=== PATIENT | female | born 1980 | race Caucasian/White ===

== ENCOUNTER 2016-06-05 16:41 | Outpatient (CLI) | payer MEDICAID | END 2016-06-05 16:42 | disposition home or self-care (01) | DX: M79.671 Pain in right foot (principal) ==

== ENCOUNTER 2016-09-11 09:14 | Emergency (ER) | payer MEDICAID ==
[2016-09-11 09:19] VITALS: BP 127/73
--- NOTE | 2016-09-11 09:40 | ED Physician Documentation ---
PD HPI HEENT - Stated complaint Stated Complaint: THROAT SWOLLEN - Chief complaint Chief Complaint: Heent - History obtained from History obtained from: Patient - History of Present Illness Timing - onset: How many days ago (4) Timing - details: Still present Location: Throat Worsens: Swalllowing Similar symptoms before: No diagnosis - Additional information Additional information: The patient is a 36-year-old female who presents with discomfort on the left side of her throat. Her symptoms started 4 days ago and have persisted. She feels slight swelling, and the discomfort is worse with swallowing. She denies fever, headache, earache, or difficulty breathing. She reports history of similar symptoms occasionally in the past but usually lasting for only a few hours rather than 4 days. Review of Systems Constitutional: denies: Fever Eyes: denies: Decreased vision, Irritation Ears: denies: Ear pain Nose: denies: Congestion Throat: reports: Sore throat (She does not describe it as a sore throat, but more like something is pressing on the left side of her throat.) Cardiac: denies: Chest pain / pressure Respiratory: denies: Dyspnea, Cough GI: denies: Abdominal Pain, Nausea, Vomiting Musculoskeletal: denies: Back pain Neurologic: denies: Focal weakness, Numbness, Difficulty speaking, Headache PD PAST MEDICAL HISTORY - Past Medical History Cardiovascular: Other Respiratory: None Neuro: None Endocrine/Autoimmune: None GI: GERD, 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: Uterine cancer : Kidney stones HEENT: None Psych: Depression, Bipolar disorder, Post traumatic stress disorder, Obsessive compulsive disorder Musculoskeletal: None Derm: Eczema Other Past Medical History: cervical/uterine cancer - Past Surgical History Past Surgical History: Yes General: Cholecystectomy, 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 /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: Hysterectomy, Oophrectomy - Present Medications Home Medications: Ambulatory Orders Medication Instructions Recorded Confirmed QUEtiapine [SEROquel] 300 mg PO QPM 10/01/12 09/11/16 Prazosin [Minipress] 3 mg PO DAILY 09/11/16 09/11/16 - Allergies Allergies/Adverse Reactions: Allergies Allergy/AdvReac Type Severity Reaction Status Date / Time acetaminophen [From Tylenol] Allergy Unknown Verified 08/23/15 10:09 codeine [Codeine] Allergy unknown Verified 08/23/15 10:09 morphine Allergy Unknown Verified 09/11/16 09:19 - Social History Does the pt smoke?: No Smoking Status: Never smoker Does the pt drink ETOH?: Yes Does the pt have substance abuse?: No - Immunizations Immunizations are current?: Yes Immunizations: TDAP >10years/unknown - POLST Patient has POLST: No PD ED PE NORMAL - Vitals Vital signs reviewed: Yes (normal) - General General: Alert and oriented X 3, No acute distress, Well developed/nourished - HEENT HEENT: Atraumatic, PERRL, EOMI, Ears normal, Pharynx benign - Neck Neck: Supple, no meningeal sign, No adenopathy, No JVD, Other (There is no visible swelling on the left side of the neck, but there is very slight tenderness to palpation over the left carotid region.) - Cardiac Cardiac: RRR, No murmur - Respiratory Respiratory: No respiratory distress, Clear bilaterally - Abdomen Abdomen: Soft, Non tender - Back Back: No CVA TTP - Derm Derm: No rash - Extremities Extremities: No edema, No calf tenderness / cord - Neuro Neuro: Alert and oriented X 3, No motor deficit, No sensory deficit, Normal speech Results - Vitals Vitals: Oxygen O2 Source Room air - Rads (name of study) CT neck, soft tisue Radiology: Prelim report reviewed, EMP read contemporaneously, See rad report ( Mild circumferential soft tissue thickening surrounding the distal left CCA and bifurcation. No intimal irregularity, dissection flap, or narrowing is seen. Findings are consistent with acute idiopathic carotidynia. No findings to suggest dissection or vasculitis is appreciated. Otherwise unremarkable CT scan of the neck.) PD MEDICAL DECISION MAKING - ED course Complexity details: reviewed results, re-evaluated patient, considered differential, d/w patient ED course: The patient's presentation is significant for left sided carotidynia, with contrast enhanced CT scan of the neck revealing no evidence of carotid dissection or vasculitis. Review of the medical literature on up-to-date reveals this to be an idiopathic entity with no specific treatment recommendations. I discussed with the patient the results of the CT scan, outpatient follow-up, as well as potentially worrisome signs or symptoms that should prompt reevaluation in the emergency department. Departure - Departure Disposition: 01 Home, Self Care Clinical Impression: Carotidynia Condition: Stable Instructions: ED Cervical Adenitis No Abx Tx Follow-Up: Emigdio Aguirre PA-C [Primary Care Provider] - Comments: Drink plenty of fluids. Use Tylenol or ibuprofen if needed for discomfort. Follow up with your primary physician within one to 2 weeks. Call to schedule an appointment. Return to the emergency department if you develop increasing pain, increasing swelling of your neck, headache, visual disturbance, or otherwise worsening symptoms. Discharge Date/Time: 09/11/16 12:18
[2016-09-11] MEDS ORDERED: IOPAMIDOL-300 100 ML VIAL IVP ONE (11:00)
--- NOTE | 2016-09-11 11:45 | CT Preliminary Report ---
Exam: CT Neck Soft Tissue W/ IMPRESSION: 1. Mild circumferential soft tissue thickening surrounding the distal left CCA and bifurcation. No in timal irregularity, dissection flap, or narrowing is seen. Findings are consistent with acute idiopat hic carotidynia (idiopathic carotiditis). No findings to suggest dissection or vasculitis is apprecia colby. 2. Otherwise unremarkable CT scan of the neck. [facility] SITE ID: [id number]
--- NOTE | 2016-09-11 11:58 | CT Report ---
EXAM: CT SOFT TISSUE NECK, WITH CONTRAST. EXAM DATE: 09/11/2016 10:54 AM. HISTORY: Pain and slight swelling in the left neck. COMPARISONS: None. TECHNIQUE: Routine soft tissue neck CT protocol. IV contrast: 80 mL Isovue 300. Reconstructions: Leana nal and sagittal. In accordance with CT protocol optimization, one or more of the following dose reduction techniques w ere utilized for this exam: automated exposure control, adjustment of mA and/or KV based on patient s ize, or use of iterative reconstructive technique. FINDINGS: Skull base: The visualized parenchyma in the floor of the middle and posterior cranial fossa is unrem arkable. Partially visualized paranasal sinuses are clear. The mastoid air cells and middle ear cavities are c lear. The skull base is intact. Pharynx: Pharyngeal mucosa is unremarkable. The infratemporal fossa, parapharyngeal spaces, and retro pharyngeal space are unremarkable. The base of the tongue is symmetric and unremarkable. The airway i s patent. The floor of the mouth is symmetric and unremarkable. Larynx: The larynx and supraglottic airway are patent without mass lesion. The vocal cords are symmet prakash. The trachea is unremarkable. Parotid and submandibular glands: Symmetric and unremarkable. Lymph nodes and soft tissues: No abnormal cervical, supraclavicular, or visualized superior mediastin al adenopathy is seen. Skin marker is placed in the left anterior mid neck at the level of the carotid bifurcation, at the s ite of symptoms. Deep to this skin marker node is made of mild circumferential hypodense soft tissue thickening surrounding the distal left CCA and bifurcation. No underlying vessel narrowing is evident . No abnormal enhancement by CT scan is appreciated. Vasculature: Otherwise great vessels within the neck are patent and unremarkable. No significant sten osis. No evidence of dissection. Thyroid gland: Unremarkable. Lung apices: Clear. Bones: Normal. No fractures, bone lesions or degenerative changes. Other: None. IMPRESSION: 1. Mild circumferential soft tissue thickening surrounding the distal left CCA and bifurcation. No in timal irregularity, dissection flap, or narrowing is seen. Findings are consistent with acute idiopat hic carotidynia (idiopathic carotiditis). No findings to suggest dissection or vasculitis is apprecia colby. 2. Otherwise unremarkable CT scan of the neck. [facility] Referring Provider Line: [phone] SITE ID: [id number]
== END 2016-09-11 12:18 | disposition home or self-care (01) ==
LOC: ED 09:14
DX: G90.01 Carotid sinus syncope (principal); K21.9 Gastro-esophageal reflux disease without esophagitis; Z85.41 Personal history of malignant neoplasm of cervix uteri; Z85.42 Personal history of malignant neoplasm of other parts of uterus; Z87.442 Personal history of urinary calculi
CPT/HCPCS: 70491; 99283; Q9967

== ENCOUNTER 2016-10-07 11:07 | Emergency (ER) | payer MEDICAID ==
[2016-10-07 11:18] VITALS: BP 148/90
--- NOTE | 2016-10-07 12:40 | ED Physician Documentation ---
History of Present Illness - Stated complaint Stated Complaint: LOWER BACK PX - Chief complaint Chief Complaint: Back Pain - Additonal information Additional information: hx from pt 36 female hx low back pain since age11 int acute exacerbations this exacerbation X 5 days no specific injury recalled pain is across low lumbar region with some pain and numbness radaiting to the mid posterior R thigh and occ sharp pains to the right knee no abd pain no weakness no saddle anesthesia no urinary incont no fever no surgery dental work IV meds/drugs hx uterine cancer clean X 8 yr with regular fup and she does not think this back pain is related this pain is the same as her many prior epsiodes except lasting 5 days has already tried naproxen lido patches and TENS unit denies preg s/p hyst Review of Systems Constitutional: denies: Fever, Chills Cardiac: denies: Chest pain / pressure Respiratory: denies: Dyspnea GI: denies: Abdominal Pain : reports: Hysterectomy. denies: Incontinent Musculoskeletal: reports: Back pain Neurologic: reports: Numbness (posterior right thigh). 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 : Kidney stones HEENT: None Psych: Depression, Bipolar disorder, Post traumatic stress disorder, Obsessive compulsive disorder Musculoskeletal: None Derm: Eczema - Past Surgical History Past Surgical History: Yes General: Cholecystectomy, 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 /STAGE RIGGER: Hysterectomy, Oophrectomy - Present Medications Home Medications: Ambulatory Orders Medication Instructions Recorded Confirmed QUEtiapine [SEROquel] 300 mg PO QPM 10/01/12 10/07/16 Prazosin [Minipress] 3 mg PO DAILY 09/11/16 10/07/16 Carisoprodol [Soma] 350 mg PO Q8H PRN #15 tablet 10/07/16 predniSONE [Deltasone] 40 mg PO DAILY 5 Days 10/07/16 traMADol [Ultram] 50 mg PO Q6H PRN #6 tablet 10/07/16 - Allergies Allergies/Adverse Reactions: Allergies Allergy/AdvReac Type Severity Reaction Status Date / Time acetaminophen [From Tylenol] Allergy Unknown Verified 10/07/16 11:19 codeine [Codeine] Allergy unknown Verified 10/07/16 11:19 morphine Allergy Unknown Verified 10/07/16 11:19 - Social History Does the pt smoke?: No Smoking Status: Never smoker Does the pt drink ETOH?: Yes Does the pt have substance abuse?: No - Immunizations Immunizations are current?: Yes Immunizations: TDAP >10years/unknown - POLST Patient has POLST: No PD ED PE NORMAL - Vitals Vital signs reviewed: Yes - Neck Neck: Supple, no meningeal sign - Cardiac Cardiac: RRR - Respiratory Respiratory: No respiratory distress, Clear bilaterally - Abdomen Abdomen: Soft, Non tender, Other (no pulsatile mass) - Back Back: No spinal TTP (no focal bony TTP and no redness swelling or warmth) - Derm Derm: Normal color - Neuro Neuro: No motor deficit, No sensory deficit, Other (hip flex knee ext slightly limited by pain but 5/5, foot dorsi planta and great toe ext 5/5, patellar DTR 2 /4, no ankle clonus, denies saddle anesthesia, slight dec senastion posterior right thigh) Results - Vitals Vitals: Vital Signs - 24 hr 10/07/16 11:16 Temperature 36.4 C L Heart Rate 112 H Respiratory 16 Rate Blood Pressure 148/90 H O2 Saturation 98 Oxygen O2 Source Room air PD MEDICAL DECISION MAKING - ED course ED course: HR noted and ddx considered - based on careful hx and exam do not feel this is an epidural abscess or hematoma, AAA, pyelo, complication of prior cancer pt is very uncomfortable standing leaning against the wall rather than using the ER bed she drive herself and would like to go home to medicate so cannot wait and monitor response to rx given long hx of same and reassuring hx and exam will dc with symptomatic meds and do not feel imaging is needed Departure - Departure Disposition: 01 Home, Self Care Clinical Impression: Back pain with sciatica Condition: Good Instructions: ED Back Care Tips, ED Sciatica Follow-Up: Emigdio Aguirre PA-C [Primary Care Provider] - (for a recheck this week - be sure to get your heart rate and blood pressure rechecked) Prescriptions: predniSONE [Deltasone] 40 mg PO DAILY 5 Days Carisoprodol [Soma] 350 mg PO Q8H PRN #15 tablet PRN Reason: muscle spasm traMADol [Ultram] 50 mg PO Q6H PRN #6 tablet PRN Reason: Severe Pain Comments: Continue your lidocaine patches and TENS unit Add the steroids for 5 days (do not take naproxen while taking the steroids) to decrease the nerve inflammation - next dose tomorrow And the muscle relxant And I prescribed 6 tramadol which is a strong pain medication to help ease the pain until the steroids can start to work Follow up with your PMD for a recheck Return to the ER if worse Forms: Activity restrictions
[2016-10-07] MEDS ORDERED: CHERRY SYRUP 10 ML UDC PO ONE (12:55)
[2016-10-07] MEDS ORDERED: DEXAMETHASONE 10 MG/ML VIAL ONE (12:55)
[2016-10-07] MEDS: DEXAMETHASONE 10 MG/ML VIAL PO STA (12:56)
== END 2016-10-07 12:57 | disposition home or self-care (01) ==
LOC: ED 11:07
DX: M54.41 Lumbago with sciatica, right side (principal); K21.9 Gastro-esophageal reflux disease without esophagitis; Z85.42 Personal history of malignant neoplasm of other parts of uterus; Z87.442 Personal history of urinary calculi
CPT/HCPCS: 99283; A9270

== ENCOUNTER 2017-03-23 08:30 | Outpatient (CLI) | payer MEDICAID ==
[2017-03-23 13:04] LABS: BASOPHILS # (AUTO) 0.1 10^3/uL (0.0-0.1); BASOPHILS % (AUTO) 0.8 %; EOSINOPHILS # (AUTO) 0.2 10^3/uL (0.0-0.7); EOSINOPHILS % (AUTO) 3.3 %; HGB - HEMOGLOBIN 13.4 g/dL (12.0-16.0); LYMPHOCYTES # (AUTO) 2.9 10^3/uL (1.5-3.5); LYMPHOCYTES % (AUTO) 40.1 %; MEAN CORPUSCULAR HEMOGLOBIN 33.5 pg (27.0-31.0); MEAN CORPUSCULAR HGB CONC 35.2 g/dL (32.0-36.0); MEAN CORPUSCULAR VOLUME 95.2 fL (81.0-99.0); MEAN PLATELET VOLUME 8.2 fL (7.9-10.8); MONOCYTES # (AUTO) 0.5 10^3/uL (0.0-1.0); MONOCYTES % (AUTO) 6.5 %; NEUTROPHILS # (AUTO) 3.5 10^3/uL (1.5-6.6); NEUTROPHILS % (AUTO) 49.3 %; PLT - PLATELET COUNT 301 10^3/uL (130-450); RED CELL DISTRIBUTION WIDTH 12.1 % (12.0-15.0); WHITE BLOOD COUNT 7.1 x10^3/uL (4.8-10.8)
[2017-03-23 13:05] LABS: ALBUMIN 3.8 g/dL (3.2-5.5); ALBUMIN/GLOBULIN RATIO 1.4 (1.0-2.2); ALKALINE PHOSPHATASE 60 IU/L (42-121); ALT ALANINE AMINOTRANSFERASE 22 IU/L (10-60); AST ASPARTATE AMINOTRANSFERASE 22 IU/L (10-42); BILIRUBIN,TOTAL 0.4 mg/dL (0.2-1.0); BUN - BLOOD UREA NITROGEN 7 mg/dL (6-20); CALCIUM 8.5 mg/dL (8.5-10.3); CARBON DIOXIDE - CO2 22 mmol/L (21-32); CHLORIDE 105 mmol/L (101-111); CHOL/HDL RATIO 5.5 (<4.4); CHOLESTEROL 224 mg/dL; CREATININE 0.8 mg/dL (0.4-1.0); GFR - MDRD 80 (>89); GLUCOSE 174 mg/dL (70-100); HDL CHOLESTEROL 41 mg/dL; LDL CHOLESTEROL,CALCULATED 131 mg/dL; LDL/HDL RATIO 3.2 (<4.4); SODIUM 135 mmol/L (135-145); TOTAL PROTEIN 6.5 g/dL (6.7-8.2); VLDL CHOLESTEROL 52 mg/dL
== END 2017-03-23 08:31 | disposition home or self-care (01) ==
LOC: LAB.N 08:30
PROVIDERS: ATTEND Nurse Practitioner Gerontology
DX: Z79.899 Other long term (current) drug therapy (principal)
CPT/HCPCS: 36415; 80053; 80061; 83721; 85025

== ENCOUNTER 2017-03-30 08:00 | Outpatient (CLI) | payer MEDICAID ==
[2017-03-30 19:52] LABS: HB2 TOTAL 14.6 g/dL; HEMOGLOBIN A1C 0.72 g/dL; HEMOGLOBIN A1C % 6.7 % (4.6-6.2)
== END 2017-03-30 08:01 | disposition home or self-care (01) ==
LOC: LAB.N 08:00
PROVIDERS: ATTEND Nurse Practitioner Gerontology
DX: R73.9 Hyperglycemia, unspecified (principal)
CPT/HCPCS: 36415; 83036

== ENCOUNTER 2017-07-11 15:51 | Emergency (ER) | payer MEDICAID ==
[2017-07-11] MEDS ORDERED: oxyCODONE 5 MG TABLET PO STA (16:12)
[2017-07-11] MEDS ORDERED: KETOROLAC 10 MG TABLET PO STA (16:12)
--- NOTE | 2017-07-11 16:14 | ED Physician Documentation ---
PD HPI UPPER EXT INJURY - Stated complaint Stated Complaint: R SHOULDER/ARM PX - Chief complaint Chief Complaint: Ext Problem - History obtained from History obtained from: Patient - History of Present Illness Location: Other (Ongoing R shoulder pain for years Had a rotator cuff repair a couple of years ago and has had basically chronic pain since managed by very occasional oxycodone. 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 : Kidney stones HEENT: None Psych: Depression, Bipolar disorder, Post traumatic stress disorder, Obsessive compulsive disorder Musculoskeletal: None Derm: Eczema - Past Surgical History Past Surgical History: Yes General: Cholecystectomy, 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: Hysterectomy, Oophrectomy - Present Medications Home Medications: Ambulatory Orders Medication Instructions Recorded Confirmed QUEtiapine [SEROquel] 300 mg PO QPM 10/01/12 10/07/16 Prazosin [Minipress] 3 mg PO DAILY 09/11/16 10/07/16 Meloxicam [Mobic] 7.5 mg PO BIDWM PRN #15 tablet 07/11/17 oxyCODONE [Roxicodone] 5 mg PO Q4-6H PRN #15 tablet 07/11/17 - Allergies Allergies/Adverse Reactions: Allergies Allergy/AdvReac Type Severity Reaction Status Date / Time acetaminophen [From Tylenol] Allergy Unknown Verified 10/07/16 11:19 codeine [Codeine] Allergy unknown Verified 10/07/16 11:19 morphine Allergy Unknown Verified 07/11/17 15:58 - Social History Does the pt smoke?: No Smoking Status: Never smoker Does the pt drink ETOH?: Yes Does the pt have substance abuse?: No - Immunizations Immunizations are current?: Yes Immunizations: TDAP >10years/unknown - POLST Patient has POLST: No PD ED PE NORMAL - Vitals Vital signs reviewed: Yes - General General: Alert and oriented X 3, No acute distress, Well developed/nourished - Extremities Extremities: Other (No asymmetry of the shoulders grossly, she has relatively good range of motion in external and internal rotation but really cannot abduct at all. She is tender over the top of the shoulder joint but there is no deformity. She has normal spinner cap frame strength, thumb extension, interossei strength.) - Neuro Neuro: Alert and oriented X 3, Normal speech Results - Vitals Vitals: Vital Signs - 24 hr 07/11/17 15:56 Temperature 36.6 C Heart Rate 108 H Respiratory 18 Rate Blood Pressure 151/90 H O2 Saturation 99 Oxygen O2 Source Room air PD MEDICAL DECISION MAKING - ED course ED course: 36-year-old woman with an exacerbation of chronic rotator cuff issues. No evidence of anything that would need an x-ray or infection. The [employer] prescription monitoring program was queried with regard to this patient. No concerning findings were found. Departure - Departure Disposition: 01 Home, Self Care Clinical Impression: Rotator cuff tear, right Qualifiers: Rotator cuff tear extent: unspecified tear extent Qualified Code(s): M75.101 - Unspecified rotator cuff tear or rupture of right shoulder, not specified as traumatic Right shoulder strain Qualifiers: Encounter type: initial encounter Qualified Code(s): S46.911A - Strain of unspecified muscle, fascia and tendon at shoulder and upper arm level, right arm , initial encounter Condition: Good Record reviewed to determine appropriate education?: Yes Instructions: ED Tendinitis Rotator Cuff Prescriptions: Meloxicam [Mobic] 7.5 mg PO BIDWM PRN #15 tablet PRN Reason: Pain oxyCODONE [Roxicodone] 5 mg PO Q4-6H PRN #15 tablet PRN Reason: Pain Comments: Do gentle range of motion exercises to preserve range of motion. Follow-up with your orthopedist, next available appointment. Return if worse. Do not drink or drive while taking narcotic pain medication. Note that many narcotic pain relievers also contain Tylenol/acetaminophen. Please ensure that your total dose of acetaminophen from all sources does not exceed 3 g (3000 mg) per day. You may get constipated while on this medication. Take a stool softener such as Colace twice a day while you are on it. Also add an [id number]-[id number] laxative such as senna or MiraLAX on any day that you do not have a bowel movement. If you received a narcotic pain medication or sedative while in the emergency department, do not drive for the next 24 hours. Your blood pressure was elevated today on check into the emergency department. This does not mean that you have hypertension, it is a common phenomenon to come to the emergency department and have elevated blood pressure. I recommend that you see your primary care physician within the week to have it rechecked when you are feeling better.
[2017-07-11 16:42] VITALS: BP 132/89
== END 2017-07-11 16:43 | disposition home or self-care (01) ==
LOC: ED 15:51
DX: S46.911A Strain of unspecified muscle, fascia and tendon at shoulder and upper arm level, right arm, initial encounter (principal); X50.0XXA Overexertion from strenuous movement or load, initial encounter; M75.101 Unspecified rotator cuff tear or rupture of right shoulder, not specified as traumatic; R03.0 Elevated blood-pressure reading, without diagnosis of hypertension; K21.9 Gastro-esophageal reflux disease without esophagitis; Z85.42 Personal history of malignant neoplasm of other parts of uterus; Z87.442 Personal history of urinary calculi
CPT/HCPCS: 99283; A9270

== ENCOUNTER 2017-07-29 09:31 | Outpatient (CLI) | payer MEDICAID ==
[2017-07-29 13:11] LABS: HB2 TOTAL 15.9 g/dL; HEMOGLOBIN A1C 0.81 g/dL; HEMOGLOBIN A1C % 6.8 % (4.6-6.2)
== END 2017-07-29 09:32 ==
LOC: LAB.N 09:31
PROVIDERS: ATTEND Nurse Practitioner Gerontology
DX: E11.9 Type 2 diabetes mellitus without complications (principal)
CPT/HCPCS: 36415; 83036

== ENCOUNTER 2017-08-20 19:18 | Emergency (ER) | payer MEDICAID ==
--- NOTE | 2017-08-20 20:50 | ED Physician Documentation ---
PD HPI HEENT - Stated complaint Stated Complaint: THROAT PX/POST OP - Chief complaint Chief Complaint: Heent - History obtained from History obtained from: Patient - History of Present Illness Timing - onset: Today Timing - details: Gradual onset Location: Throat Worsens: Swalllowing Associated symptoms: No: Fever, Congestion, Unable to swallow, Swollen nodes, Cough Similar symptoms before: Diagnosis (prior strep throat episodes, and has had staph throat infections as well.) Recently seen: Surgery (had EGD to place pH monitor in esophagus yesterday.) Review of Systems Constitutional: denies: Fever, Chills Nose: denies: Rhinorrhea / runny nose, Congestion Throat: reports: Sore throat. 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: Hysterectomy, Oophrectomy - Present Medications Home Medications: Ambulatory Orders Medication Instructions Recorded Confirmed QUEtiapine [SEROquel] 300 mg PO QPM 10/01/12 10/07/16 Prazosin [Minipress] 3 mg PO DAILY 09/11/16 10/07/16 Meloxicam [Mobic] 7.5 mg PO BIDWM PRN #15 tablet 07/11/17 oxyCODONE [Roxicodone] 5 mg PO Q4-6H PRN #15 tablet 07/11/17 Doxycycline Monohydrate 100 mg PO BID #14 tablet 08/20/17 Lidocaine Viscous 2% [Xylocaine 5 ml PO Q4H PRN #1 bottle 08/20/17 Viscous 2%] - Allergies Allergies/Adverse Reactions: Allergies Allergy/AdvReac Type Severity Reaction Status Date / Time acetaminophen [From Tylenol] Allergy Unknown Verified 08/20/17 19:25 codeine [Codeine] Allergy unknown Verified 08/20/17 19:25 morphine Allergy Unknown Verified 08/20/17 19:25 - Social History Does the pt smoke?: No Smoking Status: Never smoker Does the pt drink ETOH?: Yes Does the pt have substance abuse?: No - Immunizations Immunizations are current?: Yes Immunizations: TDAP >10years/unknown - POLST Patient has POLST: No PD ED PE NORMAL - Vitals Vital signs reviewed: Yes - General General: Alert and oriented X 3, No acute distress, Well developed/nourished - HEENT HEENT: Ears normal, Moist mucous membranes, Dentition benign. No: Pharynx benign (some redness and swelling right tonsil. No exudate. ) - Neck Neck: Supple, no meningeal sign, No adenopathy - Cardiac Cardiac: RRR, No murmur - Respiratory Respiratory: Clear bilaterally - Derm Derm: Normal color, Warm and dry, No rash Results - Vitals Vitals: Oxygen O2 Source Room air - Labs Labs: Microbiology 08/20/17 20:29 Group A Strep Throat Culture - Preliminary Throat CULTURE IN PROGRESS. RESULTS TO FOLLOW. Laboratory Tests 08/20/17 20:29 Group A Strep Rapid Negative PD MEDICAL DECISION MAKING - ED course Complexity details: considered differential (had scope with pH monitor placed yesterday, but is hurting in tonsillar area and has had strep and staph throat infections in the past. ), d/w patient - Sepsis Event Vital Signs: Oxygen O2 Source Room air Departure - Departure Disposition: Home, Self Care Clinical Impression: Pharyngitis Qualifiers: Pharyngitis/tonsillitis etiology: unspecified etiology Qualified Code(s): J02.9 - Acute pharyngitis, unspecified Condition: Stable Record reviewed to determine appropriate education?: Yes Instructions: ED Strep Pharyngitis Poss Follow-Up: Stephanie Keys ARNP [Primary Care Provider] - Prescriptions: Doxycycline Monohydrate 100 mg PO BID #14 tablet Lidocaine Viscous 2% [Xylocaine Viscous 2%] 5 ml PO Q4H PRN #1 bottle PRN Reason: Pain Comments: The rapid strep test is negative. The culture will result in couple of days. The soreness in the throat might be just inflammatory after the scope and some refluxing. This would improve likely into tomorrow. Use lidocaine, can mix with benadryl liquid to help with discomfort (do not use antacid due to the pH probe test). If you are improving into tomorrow, then just continue with that until better. If worse symptoms, then start antibiotic Doxycycline presuming developing infection. Follow up with the GI folk as planned. Discharge Date/Time: 08/20/17 21:53
[2017-08-20] MEDS ORDERED: diphenhydrAMINE ELIXIR 25 MG/10 ML UDC PO STA (21:18)
[2017-08-20] MEDS ORDERED: LIDOCAINE VISCOUS 2% 15 ML UDC MM STA (21:18)
[2017-08-20] MEDS ORDERED: DEXAMETHASONE 10 MG/ML VIAL PO STA (21:18)
[2017-08-20 21:30] VITALS: BP 125/84
== END 2017-08-20 21:53 | disposition home or self-care (01) ==
LOC: ED 19:18
DX: J02.9 Acute pharyngitis, unspecified (principal); Z98.890 Other specified postprocedural states
CPT/HCPCS: 87070; 87430; 99283; A9270

== ENCOUNTER 2017-09-14 10:11 | Emergency (ER) | payer MEDICAID ==
[2017-09-14 10:42] VITALS: BP 128/93
[2017-09-14] MEDS ORDERED: KETOROLAC 60 MG/2 ML VIAL IM STA (12:05)
[2017-09-14] MEDS ORDERED: DEXAMETHASONE 10 MG/ML VIAL PO STA (12:05)
--- NOTE | 2017-09-14 12:07 | ED Physician Documentation ---
PD HPI BACK PAIN - Stated complaint Stated Complaint: LOWER BACK/R LEG PX - Chief complaint Chief Complaint: Back Pain - History obtained from History obtained from: Patient - History of Present Illness Timing - onset: How many days ago (5) Timing - duration: Days (5) Timing - details: Gradual onset, Still present Location: Lower, Right Quality: Pain, Spasm, Sharp, Similar to prior episodes Associated symptoms: No: Fever, Weakness, Numbness, Incontinent of urine, Unable to urinate, Hematuria, Incontinent of stool Improves with: Rest, Ice, Position, Meds Worsened by: Movement Contributing factors: Lifting, Twisting Similar symptoms before: Diagnosis (sciatica) Recently seen: Not recently seen - Additional information Additional information: 37-year-old female with chronic back pain has developed acute right-sided sciatica again. She has had this a number of times since she was 11 years old and had spinal meningitis. She states that she believes the poked her sciatic nerve at the time and since then she has had problems with this periodically. She is now on some restricted activity secondary to a shoulder injury and she does not know of any loading injury prior to the onset of her symptoms. She woke up 5 mornings ago with this pain in her back is similar to what she has had previously. Review of Systems Constitutional: denies: Fever Eyes: denies: Decreased vision Ears: denies: Ear pain Nose: denies: Congestion Throat: denies: Sore throat Cardiac: denies: Chest pain / pressure, Palpitations Respiratory: denies: Dyspnea, Cough GI: denies: Nausea, Vomiting : denies: Dysuria, Frequency Skin: denies: Rash Musculoskeletal: reports: Back pain, Extremity pain. denies: Neck pain Neurologic: denies: Generalized weakness, Focal weakness, Numbness PD PAST MEDICAL HISTORY - Past Medical History Past Medical History: Yes Cardiovascular: Other Respiratory: None Endocrine/Autoimmune: None GI: GERD, Other RN STAFFING: Uterine cancer : Kidney stones HEENT: None Psych: Depression, Bipolar disorder, Post traumatic stress disorder, Obsessive compulsive disorder Musculoskeletal: None, Chronic back pain Derm: Eczema - Past Surgical History Past Surgical History: Yes General: Cholecystectomy, 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 /RN STAFFING: Hysterectomy, Oophrectomy - Present Medications Home Medications: Ambulatory Orders Medication Instructions Recorded Confirmed QUEtiapine [SEROquel] 300 mg PO QPM 10/01/12 10/07/16 Prazosin [Minipress] 3 mg PO DAILY 09/11/16 10/07/16 Meloxicam [Mobic] 7.5 mg PO BIDWM PRN #15 tablet 07/11/17 oxyCODONE [Roxicodone] 5 mg PO Q4-6H PRN #15 tablet 07/11/17 Doxycycline Monohydrate 100 mg PO BID #14 tablet 08/20/17 Lidocaine Viscous 2% [Xylocaine 5 ml PO Q4H PRN #1 bottle 08/20/17 Viscous 2%] Carisoprodol 350 mg PO Q8HR PRN #20 tablet 09/14/17 Tramadol HCl 50 - 100 mg PO Q8HR PRN #20 tablet 09/14/17 - Allergies Allergies/Adverse Reactions: Allergies Allergy/AdvReac Type Severity Reaction Status Date / Time acetaminophen [From Tylenol] Allergy Unknown Verified 08/20/17 19:25 codeine [Codeine] Allergy unknown Verified 08/20/17 19:25 morphine Allergy Unknown Verified 08/20/17 19:25 - Social History Does the pt smoke?: No Smoking Status: Never smoker Does the pt drink ETOH?: Yes Does the pt have substance abuse?: No - Immunizations Immunizations are current?: Yes Immunizations: TDAP >10years/unknown - POLST Patient has POLST: No PD ED PE NORMAL - Vitals Vital signs reviewed: Yes (tachy and hypertensive ) - General General: Alert and oriented X 3, Well developed/nourished, Other (pacing in the room appears to be in pain) - HEENT HEENT: Atraumatic, PERRL, EOMI - Neck Neck: Supple, no meningeal sign - Respiratory Respiratory: No respiratory distress - Back Back: No CVA TTP, Other (There is paraspinous muscle tenderness to the right lower lumbar area extending into the sciatic notch. 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 She prefers the tramadol for pain medication and soma. - Sepsis Event Vital Signs: Vital Signs - 24 hr 09/14/17 10:40 Temperature 36.4 C L Heart Rate 112 H Respiratory 20 Rate Blood Pressure 128/93 H O2 Saturation 99 Oxygen O2 Source Room air Departure - Departure Disposition: Home, Self Care Clinical Impression: Sciatica Qualifiers: Laterality: right Qualified Code(s): M54.31 - Sciatica, right side Condition: Stable Instructions: ED Sciatica Follow-Up: Stephanie Keys ARNP [Primary Care Provider] - Prescriptions: Carisoprodol 350 mg PO Q8HR PRN #20 tablet PRN Reason: back spasm Tramadol HCl 50 - 100 mg PO Q8HR PRN #20 tablet PRN Reason: Pain
[2017-09-14] MEDS ORDERED: CHERRY SYRUP 10 ML UDC PO ONE (12:33)
== END 2017-09-14 12:29 | disposition home or self-care (01) ==
LOC: ED 10:11
DX: M54.31 Sciatica, right side (principal)
CPT/HCPCS: 96372; 99283; A9270

== ENCOUNTER 2017-10-12 09:54 | Emergency (ER) | payer MEDICAID ==
[2017-10-12 10:01] VITALS: BP 127/87
[2017-10-12 10:47] LABS: BILIRUBIN,URINE NEGATIVE (NEGATIVE); GLUCOSE, URINE (UA) NEGATIVE (NEGATIVE); KETONES,URINE (UA) NEGATIVE (NEGATIVE); LEUKOCYTE ESTERASE, URINE TRACE (NEGATIVE); NITRITE,URINE POSITIVE (NEGATIVE); OCCULT BLOOD,URINE NEGATIVE (NEGATIVE); PROTEIN,URINE NEGATIVE (NEGATIVE); UROBILINOGEN,URINE 0.2 (NORMAL) E.U./dL (NORMAL)
[2017-10-12 10:49] LABS: CLARITY,URINE HAZY (CLEAR); HCG UR QUAL NEGATIVE
[2017-10-12 10:59] LABS: BACTERIA,URINE Moderate /HPF (None Seen); RBC,URINE 0-5 /HPF (0-5); SQUAMOUS EPITHELIAL CELL,UR FEW Squamous (<= Few)
--- NOTE | 2017-10-12 11:06 | ED Physician Documentation ---
PD HPI FEMALE - Stated complaint Stated Complaint: FEMALE - Chief complaint Chief Complaint: Abd Pain - History obtained from History obtained from: Patient - History of Present Illness Timing - onset: How many days ago (4) Timing - duration: Days (4) Timing - details: Gradual onset, Still present Associated symptoms: Dysuria, Urinary frequency Contributing factors: No: Similar symptoms before: Diagnosis (UTI) Recently seen: Not recently seen - Additional information Additional information: 37-year-old female has had urinary urgency frequency and dysuria for the past 4 days. She has previously been able to control her symptoms with use of Azo and hydration. Despite her usual attempt at this she has made no progress in improving her symptoms. Review of Systems Constitutional: denies: Fever Throat: denies: Sore throat Respiratory: denies: Cough GI: denies: Abdominal Pain, Nausea, Vomiting : reports: Dysuria, Frequency Skin: denies: Rash Musculoskeletal: reports: Back pain. 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: Uterine cancer : Kidney stones HEENT: None Psych: Depression, Bipolar disorder, Post traumatic stress disorder, Obsessive compulsive disorder Musculoskeletal: None, Chronic back pain Derm: Eczema - Past Surgical History Past Surgical History: Yes General: Cholecystectomy, 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 /TREE PLANTER: Hysterectomy, Oophrectomy - Present Medications Home Medications: Ambulatory Orders Medication Instructions Recorded Confirmed QUEtiapine [SEROquel] 300 mg PO QPM 10/01/12 10/07/16 Prazosin [Minipress] 3 mg PO DAILY 09/11/16 10/07/16 Sulfamethoxazole/Trimethoprim 1 each PO BID #10 tablet 10/12/17 [Sulfamethoxazole-Tmp Ds Tablet] metFORMIN [Glucophage] 10/12/17 - Allergies Allergies/Adverse Reactions: Allergies Allergy/AdvReac Type Severity Reaction Status Date / Time acetaminophen [From Tylenol] Allergy Unknown Verified 08/20/17 19:25 codeine [Codeine] Allergy unknown Verified 08/20/17 19:25 morphine Allergy Unknown Verified 10/12/17 10:01 - Social History Does the pt smoke?: No Smoking Status: Never smoker Does the pt drink ETOH?: Yes Does the pt have substance abuse?: No - Immunizations Immunizations are current?: Yes Immunizations: TDAP >10years/unknown - POLST Patient has POLST: No PD ED PE NORMAL - Vitals Vital signs reviewed: Yes (hypertensive ) - General General: Alert and oriented X 3, No acute distress, Well developed/nourished - HEENT HEENT: Atraumatic, PERRL, EOMI - Neck Neck: Supple, no meningeal sign - Respiratory Respiratory: No respiratory distress - Back Back: No CVA TTP, No spinal TTP - Derm Derm: Normal color, Warm and dry, No rash - Extremities Extremities: No deformity, No edema - Neuro Neuro: Alert and oriented X 3, 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 2-12 intact, No motor deficit, No sensory deficit, Normal speech Eye Opening: Spontaneous Motor: Obeys Commands Verbal: Oriented GCS Score: 15 - Psych Psych: Normal mood, Normal affect Results - Vitals Vitals: Vital Signs - 24 hr 10/12/17 09:59 Temperature 36.4 C L Heart Rate 98 Respiratory 20 Rate Blood Pressure 127/87 H O2 Saturation 96 Oxygen O2 Source Room air - Labs Labs: Laboratory Tests 10/12/17 10:40 Urine Color YELLOW Urine Clarity HAZY Urine pH 6.0 Ur Specific [place] 1.025 Urine Protein NEGATIVE Urine Glucose (UA) NEGATIVE Urine Ketones NEGATIVE Urine Occult Blood NEGATIVE Urine Nitrite POSITIVE H Urine Bilirubin NEGATIVE Urine Urobilinogen 0.2 (NORMAL) Ur Leukocyte Esterase TRACE H Urine RBC 0-5 Urine WBC >25 H Ur Squamous Epith Cells FEW Squamous Urine Bacteria Moderate H Ur Microscopic Review INDICATED Urine Culture Comments INDICATED Urine HCG, Qual NEGATIVE PD MEDICAL DECISION MAKING - ED course Complexity details: reviewed results, re-evaluated patient, considered differential, d/w patient ED course: 37-year-old female with acute urinary tract infection - Sepsis Event Vital Signs: Vital Signs - 24 hr 10/12/17 09:59 Temperature 36.4 C L Heart Rate 98 Respiratory 20 Rate Blood Pressure 127/87 H O2 Saturation 96 Oxygen O2 Source Room air Departure - Departure Disposition: 01 Home, Self Care Clinical Impression: Urinary tract infection Qualifiers: Urinary tract infection type: acute cystitis Hematuria presence: without hematuria Qualified Code(s): N30.00 - Acute cystitis without hematuria Condition: Stable Instructions: ED UTI Cystitis Female Follow-Up: Stephanie Keys ARNP [Primary Care Provider] - Prescriptions: Sulfamethoxazole/Trimethoprim [Sulfamethoxazole-Tmp Ds Tablet] 1 each PO BID # 10 tablet
== END 2017-10-12 11:17 | disposition home or self-care (01) ==
LOC: ED 09:54
DX: N30.00 Acute cystitis without hematuria (principal); Z85.42 Personal history of malignant neoplasm of other parts of uterus; Z90.710 Acquired absence of both cervix and uterus; Z90.721 Acquired absence of ovaries, unilateral
CPT/HCPCS: 81001; 81003; 81025; 87077; 87086; 87181; 99283

== ENCOUNTER 2017-10-27 14:31 | Outpatient (CLI) | payer MEDICAID | END 2017-10-27 14:32 | disposition home or self-care (01) | LOC: LAB.R 14:31 | PROVIDERS: ATTEND Nurse Practitioner Gerontology | DX: N39.0 Urinary tract infection, site not specified (principal) | CPT/HCPCS: 87086 ==

== ENCOUNTER 2017-12-07 16:16 | Emergency (ER) | payer MEDICAID ==
[2017-12-07] MEDS ORDERED: oxyCODONE 5 MG TABLET PO STA ×3 (17:23→20:50)
--- NOTE | 2017-12-07 17:26 | ED Physician Documentation ---
PD HPI HEADACHE - Stated complaint Stated Complaint: EVANS - Chief complaint Chief Complaint: Neuro - History obtained from History obtained from: Patient, Family - History of Present Illness Timing - onset: Other (37-year-old woman with history of migraines and spinal meningitis presents with 3 days of gradual onset frontal headache associated with sinus tenderness and fevers on the outset. No neck stiffness. No fever since the first day.) Review of Systems Constitutional: reports: Fever, Chills, Fatigue Ears: denies: Ear pain Nose: reports: Sinus pressure / pain. 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: Hysterectomy, Oophrectomy - Present Medications Home Medications: Ambulatory Orders Medication Instructions Recorded Confirmed QUEtiapine [SEROquel] 300 mg PO QPM 10/01/12 10/07/16 RX: Prazosin [Minipress] 3 mg PO DAILY 09/11/16 10/07/16 RX: metFORMIN [Glucophage] 10/12/17 Sulfamethoxazole/Trimethoprim 1 each PO BID #10 tablet 10/12/17 [Sulfamethoxazole-Tmp Ds Tablet] Mometasone Furoate [Nasonex] 17 gm NS BID #1 spray.pump 12/07/17 RX: predniSONE [Prednisone] 60 mg PO DAILY 5 Days #15 tablet 12/07/17 - Allergies Allergies/Adverse Reactions: Allergies Allergy/AdvReac Type Severity Reaction Status Date / Time acetaminophen [From Tylenol] Allergy Unknown Verified 12/07/17 16:30 codeine [Codeine] Allergy unknown Verified 12/07/17 16:30 morphine Allergy Unknown Verified 12/07/17 16:30 - Social History Does the pt smoke?: No Smoking Status: Never smoker Does the pt drink ETOH?: Yes Does the pt have substance abuse?: No - Immunizations Immunizations are current?: Yes Immunizations: TDAP >10years/unknown - POLST Patient has POLST: No PD ED PE NORMAL - Vitals Vital signs reviewed: Yes - General General: Alert and oriented X 3, No acute distress - HEENT HEENT: PERRL, EOMI, Ears normal, Other (Tender especially over the frontal sinuses.) - Neck Neck: No bony TTP, Other (Mild neck pain with flexion) - Neuro Neuro: Alert and oriented X 3, 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 She has had chronic issues related to lumbar punctures before. I gave her the option of doing it or not and she opted for it but she needed some anxiety medicines. We gave her some Ativan which had no effect and this was followed with oral Versed with decent effect.) Location: L3-L4 Anesthesia: Local lidocaine CSF: Clear Pressures: Opening Pressure Other: Sterile prep and drape, Patient tolerated well PD MEDICAL DECISION MAKING - ED course ED course: 37-year-old woman with frontal headache associated with fever. Seems like sinus disease on exam but meningitis is in the differential as well. We had a long discussion about lumbar puncture, she did want to go ahead with it and it took a while to get her anxiety under control enough to do it, initially did some Ativan which did not help much and then some oral Versed with mediocre effect. Spinal tap was clear. - Sepsis Event Vital Signs: Vital Signs - 24 hr 12/07/17 16:28 Temperature 36.4 C L Heart Rate 103 H Respiratory 16 Rate Blood Pressure 136/86 H O2 Saturation 98 Oxygen O2 Source Room air Departure - Departure Disposition: 01 Home, Self Care Clinical Impression: Headache Condition: Good Record reviewed to determine appropriate education?: Yes Instructions: ED Cephalgia Unspecified Prescriptions: Mometasone Furoate [Nasonex] 17 gm NS BID #1 spray.pump RX: predniSONE [Prednisone] 60 mg PO DAILY 5 Days #15 tablet Comments: Call your doctor to arrange a follow-up appointment, make the next available appointment. In the interim, return anytime if worse or if new symptoms develop. Discharge Date/Time: 12/07/17 21:04
--- NOTE | 2017-12-07 18:09 | CT Report ---
Reason: headache, ?sinusitis Procedure Date: 12/07/2017 Accession Number: [id number] / [id number] Procedure: CT - Head W/O CPT Code: FULL RESULT: EXAM: CT HEAD EXAM DATE: 12/07/2017 05:51 PM. CLINICAL HISTORY: Headache, question sinusitis. COMPARISON: None. TECHNIQUE: Multiaxial CT images were obtained from the foramen magnum to the vertex. Reformats: Sagittal and coronal. IV contrast: None. In accordance with CT protocol optimization, one or more of the following dose reduction techniques were utilized for this exam: automated exposure control, adjustment of mA and/or KV based on patient size, or use of iterative reconstructive technique. FINDINGS: Parenchyma: No intraparenchymal hemorrhage. No evidence of mass, midline shift, or CT findings of infarction. Tam-white differentiation is distinct. Extraaxial Spaces: Normal for age. No subdural or epidural collections identified. Ventricles: Normal in size and position. Sinuses and Orbits: No acute findings seen. Visualized portions of the paranasal sinuses and mastoid air cells appear clear. The inferior maxillary sinuses were not imaged. Bones: No evidence of fracture or calvarial defect. IMPRESSION: Normal head CT. Visualized portions of the paranasal sinuses and mastoid air cells appear clear. The inferior maxillary sinuses were not imaged. RADIA
[2017-12-07] MEDS ORDERED: LORazepam 0.5 MG TABLET PO STA (18:55)
[2017-12-07 19:15] LABS: BILIRUBIN,URINE NEGATIVE (NEGATIVE); GLUCOSE, URINE (UA) NEGATIVE (NEGATIVE); KETONES,URINE (UA) NEGATIVE (NEGATIVE); LEUKOCYTE ESTERASE, URINE NEGATIVE (NEGATIVE); NITRITE,URINE NEGATIVE (NEGATIVE); OCCULT BLOOD,URINE NEGATIVE (NEGATIVE); PROTEIN,URINE NEGATIVE (NEGATIVE); UROBILINOGEN,URINE 0.2 (NORMAL) E.U./dL (NORMAL)
[2017-12-07] MEDS ORDERED: LIDOCAINE 1% 2 ML VIAL SUBQ STA ×2 (19:18→19:21)
[2017-12-07 19:20] LABS: CLARITY,URINE CLEAR (CLEAR); HCG UR QUAL NEGATIVE
[2017-12-07] MEDS ORDERED: MIDAZOLAM 10 MG/5 ML UDC PO STA (19:36)
[2017-12-07 20:43] LABS: CLARITY,CSF CLEAR (CLEAR); COLOR,CSF COLORLESS (COLORLESS); CSF TUBE # CSF TUBE# 3; CSF XANTHOCHROMIA ABSENT (ABSENT); RED BLOOD CELL,CSF 2 /mm^3 (0-1); WHITE BLOOD CELL,CSF 1 /mm^3 (0-5)
[2017-12-07] MEDS ORDERED: predniSONE 20 MG TABLET PO STA (20:50)
[2017-12-07 21:02] LABS: CSF - GLUCOSE 64 mg/dL (45-70)
[2017-12-07 21:03] VITALS: BP 107/85
== END 2017-12-07 21:04 | disposition home or self-care (01) ==
LOC: ED 16:16
DX: R51 Headache (principal); Z85.42 Personal history of malignant neoplasm of other parts of uterus
CPT/HCPCS: 62270; 70450; 81003; 81025; 82945; 84157; 87070; 87205; 89051; 96372; 99283; 99284; A9270; J7512; 81001; 87086

== ENCOUNTER 2017-12-16 08:36 | Outpatient (CLI) | payer MEDICAID | END 2017-12-16 08:37 | disposition short-term general hospital (02) | LOC: EMS 08:36 | PROVIDERS: ATTEND Surgery | DX: R10.9 Unspecified abdominal pain (principal); R06.00 Dyspnea, unspecified | CPT/HCPCS: A0170; A0425; A0427; A0999 ==

== ENCOUNTER 2017-12-20 13:57 | Outpatient (CLI) | payer MEDICAID | END 2017-12-20 13:58 | disposition critical access hospital (66) | LOC: EMS 13:57 | PROVIDERS: ATTEND Surgery | DX: R06.00 Dyspnea, unspecified (principal); R05 Cough | CPT/HCPCS: A0425; A0427; A0999 ==

== ENCOUNTER 2017-12-20 14:11 | Emergency (ER) | payer MEDICAID ==
[2017-12-20] MEDS ORDERED: PROPOFOL 1000 MG/100 ML 100 ML IV STA (14:20)
[2017-12-20] MEDS ORDERED: SODIUM CHLORIDE 0.9% 1,000 ML IV ONE ×2 (14:20→16:43)
[2017-12-20] MEDS ORDERED: PROPOFOL 200 MG/20 ML VIAL IVP STA ×3 (14:20→15:19)
[2017-12-20] MEDS ORDERED: fentaNYL 2,500 MCG in SODIUM CHLORIDE 0.9% 200 ML IV STA (14:20)
--- NOTE | 2017-12-20 14:24 | ED Physician Documentation ---
PD HPI DYSPNEA - Stated complaint Stated Complaint: S/P CHOKING - History obtained from History obtained from: EMS - History of Present Illness Timing - onset: Today (She was eating a grilled cheese and aspirated. Now cannot talk. Receive racemic epi in route, EMS thinks she looks better but she is still unable to give me any history due to respiratory distress. I guess this happened before and she has been intubated for it before. 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: Hysterectomy, Oophrectomy - Present Medications Home Medications: Ambulatory Orders Medication Instructions Recorded Confirmed QUEtiapine [SEROquel] 300 mg PO QPM 10/01/12 10/07/16 Prazosin [Minipress] 3 mg PO DAILY 09/11/16 10/07/16 Sulfamethoxazole/Trimethoprim 1 each PO BID #10 tablet 10/12/17 [Sulfamethoxazole-Tmp Ds Tablet] metFORMIN [Glucophage] 10/12/17 Mometasone Furoate [Nasonex] 17 gm NS BID #1 spray.pump 12/07/17 predniSONE [Prednisone] 60 mg PO DAILY 5 Days #15 tablet 12/07/17 - Allergies Allergies/Adverse Reactions: Allergies Allergy/AdvReac Type Severity Reaction Status Date / Time acetaminophen [From Tylenol] Allergy Unknown Verified 12/07/17 16:30 codeine [Codeine] Allergy unknown Verified 12/07/17 16:30 morphine Allergy Unknown Verified 12/07/17 16:30 - Social History Does the pt smoke?: No Smoking Status: Never smoker Does the pt drink ETOH?: Yes Does the pt have substance abuse?: No - Immunizations Immunizations are current?: Yes Immunizations: TDAP >10years/unknown - POLST Patient has POLST: No PD ED PE NORMAL - Vitals Vital signs reviewed: Yes - General General: Other (She is sweaty and tachycardic, she looks acutely ill. She cannot talk at all and has a raspy cough with each exhalation.) - HEENT HEENT: PERRL, EOMI - Neck Neck: Supple, no meningeal sign, No bony TTP - Cardiac Cardiac: Other (Quite tachycardic) - Respiratory Respiratory: Other (The lungs themselves seem clear but she is tachypneic) - Abdomen Abdomen: Soft, Non tender, Other (Laparoscopic incisions are clean dry and intact) - Back Back: No CVA TTP, No spinal TTP - Derm Derm: Other (Profusely sweaty) - Extremities Extremities: No edema, No calf tenderness / cord - Neuro Eye Opening: To Voice Motor: Obeys Commands Verbal: None GCS Score: 10 Results - Vitals Vitals: Vital Signs - 24 hr 12/20/17 12/20/17 12/20/17 14:14 14:30 14:45 Heart Rate 170 H 130 H 130 H Respiratory 36 H 30 H 24 Rate Blood Pressure 110/75 136/69 H 173/59 H O2 Saturation 198 H 100 100 12/20/17 12/20/17 12/20/17 15:00 15:15 15:16 Heart Rate 130 H 126 H 124 H Respiratory 24 22 Rate Blood Pressure 169/135 H 120/96 H O2 Saturation 100 100 12/20/17 12/20/17 12/20/17 15:29 15:45 16:00 Heart Rate 114 H 110 H 100 Respiratory 18 24 18 Rate Blood Pressure 134/90 H 146/89 H 141/98 H O2 Saturation 100 100 100 12/20/17 12/20/17 16:15 16:30 Heart Rate 97 96 Respiratory 21 18 Rate Blood Pressure 136/90 H 141/91 H O2 Saturation 100 100 Oxygen O2 Source Mechanical ventilator Oxygen Flow Rate 15 - Labs Labs: Laboratory Tests 12/20/17 12/20/17 12/20/17 14:30 14:30 14:30 WBC 17.5 H RBC 4.34 Hgb 14.4 Hct 42.2 MCV 97.4 MCH 33.2 H MCHC 34.1 RDW 12.1 Plt Count 471 H MPV 8.0 Neut # (Auto) 10.4 H Lymph # (Auto) 5.3 H [place] # (Auto) 1.2 H Eos # (Auto) 0.5 Baso # (Auto) 0.1 Absolute Nucleated RBC 0.01 Nucleated RBC % 0.0 Manual Slide Review Indicated WBC Morphology 3+ REACTIVE LYMPHS Platelet Estimate INCREASED (>450,000) Platelet Morphology NORMAL APPEARANCE RBC Morph Micro Appear NORMAL APPEARANCE VBG pH VBG pCO2 VBG pO2 VBG HCO3 VBG Total CO2 VBG O2 Saturation VBG Base Excess Sodium 137 Potassium 4.1 Chloride 105 Carbon Dioxide 16 L Anion Gap 16.0 H BUN 10 Creatinine 0.9 Estimated GFR (MDRD) 70 L Glucose 177 H Calcium 10.0 Total Bilirubin 0.6 AST 31 ALT 51 Alkaline Phosphatase 77 Total Protein 8.3 H Albumin 4.5 Globulin 3.8 Albumin/Globulin Ratio 1.2 Lipase 32 Serum HCG, Qual NEGATIVE 12/20/17 14:30 WBC RBC Hgb Hct MCV MCH MCHC RDW Plt Count MPV Neut # (Auto) Lymph # (Auto) [place] # (Auto) Eos # (Auto) Baso # (Auto) Absolute Nucleated RBC Nucleated RBC % Manual Slide Review WBC Morphology Platelet Estimate Platelet Morphology RBC Morph Micro Appear VBG pH 7.386 VBG pCO2 26.7 L VBG pO2 46.4 VBG HCO3 15.7 L VBG Total CO2 16.5 L VBG O2 Saturation 83.9 H VBG Base Excess -7.5 L Sodium Potassium Chloride Carbon Dioxide Anion Gap BUN Creatinine Estimated GFR (MDRD) Glucose Calcium Total Bilirubin AST ALT Alkaline Phosphatase Total Protein Albumin Globulin Albumin/Globulin Ratio Lipase Serum HCG, Qual - Rads (name of study) 1v chest Radiology: EMP read contemporaneously (ETT and OG seem ok, ETT 3cm above joan.) Procedures - Intubation Provider: Emergency physician Medications: Propofol (100mg IVP), Succinylcholine (200mg IVP) Blade: Trisha (4) Tube: Size-enter number (8.0), Cuffed, Marked at lips-enter cm (24) Confirmation: Direct visualization (easy), Bilateral breath sounds, No abdominal breath sound, Pulse ox, Chest xray Complications: No compications PD MEDICAL DECISION MAKING - ED course ED course: 37-year-old woman presents with respiratory failure related to an aspiration episode, this is a recurrent issue, she is very sweaty and tachycardic, cannot talk or maintain her airway at all. She was cogent though and could communicate with thumbs up/thumbs down and after offering requested intubation. She was technically easy intubation but difficult to sedate after the intubation was given divided boluses of propofol by me as well as propofol and fentanyl drips. Decision was made to transfer her to a facility with pulmonary backup given the potential need for bronchoscopy and she was accepted to the [facility] by Dr. Herrera at 1503 and cobras were completed. Note made that she was very difficult to keep sedated, she was given numerous divided doses of propofol and both of propofol and fentanyl drips were titrated up rapidly. - Critical Care Time(min): 48 Time Includes: Direct patient care, Review records, Reassess patient, Document care, Coordinate care, Medical consult, Family consult for tx dec Data interpretation: Labs, Pulse ox Procedures included in critical care time: Peripheral IV Procedures excluded from critical care time: Intubation Departure - Departure Disposition: 02 Transfer Acute Care Hosp Clinical Impression: Respiratory failure Qualifiers: Chronicity: acute Respiratory failure complication: unspecified whether with hypoxia or hypercapnia Qualified Code(s): J96.00 - Acute respiratory failure, unspecified whether with hypoxia or hypercapnia Aspiration into airway Qualifiers: Encounter type: initial encounter Qualified Code(s): T17.908A - Unspecified foreign body in respiratory tract, part unspecified causing other injury, initial encounter Condition: Critical
[2017-12-20] MEDS ORDERED: SUCCINYLCHOLINE 200 MG/10 ML VIAL ONE (14:38)
[2017-12-20 14:39] LABS: BASOPHILS # (AUTO) 0.1 10^3/uL (0.0-0.1); BASOPHILS % (AUTO) 0.7 %; EOSINOPHILS # (AUTO) 0.5 10^3/uL (0.0-0.7); EOSINOPHILS % (AUTO) 3.1 %; HGB - HEMOGLOBIN 14.4 g/dL (12.0-16.0); LYMPHOCYTES # (AUTO) 5.3 10^3/uL (1.5-3.5); LYMPHOCYTES % (AUTO) 30.1 %; MEAN CORPUSCULAR HEMOGLOBIN 33.2 pg (27.0-31.0); MEAN CORPUSCULAR HGB CONC 34.1 g/dL (32.0-36.0); MEAN CORPUSCULAR VOLUME 97.4 fL (81.0-99.0); MONOCYTES # (AUTO) 1.2 10^3/uL (0.0-1.0); NEUTROPHILS # (AUTO) 10.4 10^3/uL (1.5-6.6); NEUTROPHILS % (AUTO) 59.1 %; PLT - PLATELET COUNT 471 10^3/uL (130-450); RED BLOOD COUNT 4.34 10^6/uL (4.20-5.40); RED CELL DISTRIBUTION WIDTH 12.1 % (12.0-15.0); WHITE BLOOD COUNT 17.5 x10^3/uL (4.8-10.8)
[2017-12-20 14:40] LABS: VBG PCO2 26.7 mmHg (41-51); VBG PH 7.386 (7.31-7.41); VBG PO2 46.4 mmHg (25-47)
[2017-12-20 14:41] LABS: VBG BASE EXCESS -7.5 mmol/L (-2 - +2); VBG TOTAL CO2 16.5 mmol/L (24-29)
[2017-12-20] MEDS ORDERED: fentaNYL 100 MCG/2 ML VIAL IVP STA (14:51)
[2017-12-20 14:52] LABS: ALBUMIN 4.5 g/dL (3.2-5.5); ALBUMIN/GLOBULIN RATIO 1.2 (1.0-2.2); BILIRUBIN,TOTAL 0.6 mg/dL (0.2-1.0); CREATININE 0.9 mg/dL (0.4-1.0); TOTAL PROTEIN 8.3 g/dL (6.7-8.2)
[2017-12-20] MEDS ORDERED: fentaNYL 100 MCG/2 ML VIAL ONE (14:53)
[2017-12-20 15:14] LABS: PLATELET ESTIMATE, MANUAL INCREASED (>450,000) (NORMAL); PLATELET MORPHOLOGY NORMAL APPEARANCE (NORMAL); RBC MORPHOLOGY (MULTIPLE) NORMAL APPEARANCE (NORMAL)
--- NOTE | 2017-12-20 15:32 | XRAY Report ---
Reason: resp failure Procedure Date: 12/20/2017 Accession Number: [id number] / [id number] Procedure: XR - Chest 1 View X-Ray CPT Code: 03605 FULL RESULT: EXAM: CHEST RADIOGRAPHY EXAM DATE: 12/20/2017 03:10 PM. CLINICAL HISTORY: Respiratory failure. Status post ET tube placement. COMPARISON: 05/10/2015. TECHNIQUE: 1 view. FINDINGS: Lungs/Pleura: Lung volumes are low. Mild edema versus vascular crowding. No pneumothorax. Bibasilar opacities. Mediastinum: Heart size is within normal limits. Mediastinal contour is within normal limits. Other: Interval placement of ET tube with the tip 3 cm from the joan. Orogastric tube is present with the distal portion not visualized as it extends into the upper abdomen. IMPRESSION: 1. ET tube and orogastric tube, as described. 2. Hypoventilatory changes with mild edema versus vascular crowding. 3. Bibasilar atelectasis. RADIA
[2017-12-20 15:33] LABS: HCG,QUALITATIVE BLOOD NEGATIVE
[2017-12-20 16:38] VITALS: BP 141/91
== END 2017-12-20 17:07 | disposition short-term general hospital (02) ==
LOC: EDUNIT# → ED 14:11
DX: J96.00 Acute respiratory failure, unspecified whether with hypoxia or hypercapnia (principal); T17.820A Food in other parts of respiratory tract causing asphyxiation, initial encounter; X58.XXXA Exposure to other specified factors, initial encounter; K21.9 Gastro-esophageal reflux disease without esophagitis
CPT/HCPCS: 31500; 36415; 71045; 80053; 82803; 83690; 84703; 85025; 94770; 99291; J0330; J3010; 99285

== ENCOUNTER 2017-12-29 09:39 | Outpatient (CLI) | payer MEDICAID ==
[2017-12-29 13:51] LABS: HB2 TOTAL 13.6 g/dL; HEMOGLOBIN A1C 0.57 g/dL
== END 2017-12-29 09:40 | disposition home or self-care (01) ==
LOC: LAB.N 09:39
PROVIDERS: ATTEND Nurse Practitioner Gerontology
DX: E11.9 Type 2 diabetes mellitus without complications (principal)
CPT/HCPCS: 36415; 83036

== ENCOUNTER 2018-01-25 16:34 | Emergency (ER) | payer MEDICAID ==
[2018-01-25 16:47] VITALS: BP 139/78
[2018-01-25] MEDS ORDERED: BENZOCAINE/MENTHOL LOZENGE MM STA (17:26)
--- NOTE | 2018-01-25 17:29 | ED Physician Documentation ---
History of Present Illness - Stated complaint Stated Complaint: SORE THROAT - Chief complaint Chief Complaint: Heent - Additonal information Additional information: recent sinus pressure then PND then cough 2/2 PND now sharp pain in back of throat prior sinus surgery and GERD surgery and intubation for apsiration 2/2 poor gag after other surgery denies preg Review of Systems Constitutional: denies: Fever Nose: reports: Sinus pressure / pain (chronic) Throat: reports: Sore throat Respiratory: reports: Cough PD PAST MEDICAL HISTORY - Past Medical History Past Medical History: Yes Cardiovascular: Other Respiratory: None Endocrine/Autoimmune: None GI: GERD, Other MOLDED RUBBER GOODS 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: Uterine cancer : Kidney stones HEENT: None Psych: Depression, Bipolar disorder, Post traumatic stress disorder, Obsessive compulsive disorder Musculoskeletal: None, Chronic back pain Derm: Eczema - Past Surgical History Past Surgical History: Yes General: Cholecystectomy, 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 /MOLDED RUBBER GOODS CUTTER: Hysterectomy, Oophrectomy - Present Medications Home Medications: Ambulatory Orders Medication Instructions Recorded Confirmed QUEtiapine [SEROquel] 300 mg PO QPM 10/01/12 10/07/16 Prazosin [Minipress] 3 mg PO DAILY 09/11/16 10/07/16 Sulfamethoxazole/Trimethoprim 1 each PO BID #10 tablet 10/12/17 [Sulfamethoxazole-Tmp Ds Tablet] metFORMIN [Glucophage] 10/12/17 Mometasone Furoate [Nasonex] 17 gm NS BID #1 spray.pump 12/07/17 predniSONE [Prednisone] 60 mg PO DAILY 5 Days #15 tablet 12/07/17 Dextromethorphan/Benzocaine 1 each PO Q4H PRN #20 lozenge 01/25/18 [Cepacol Sorethroat-Cough Windy] - Allergies Allergies/Adverse Reactions: Allergies Allergy/AdvReac Type Severity Reaction Status Date / Time acetaminophen [From Tylenol] Allergy Unknown Verified 01/25/18 16:48 codeine [Codeine] Allergy unknown Verified 01/25/18 16:48 morphine Allergy Unknown Verified 01/25/18 16:48 - Social History Does the pt smoke?: No Smoking Status: Never smoker Does the pt drink ETOH?: Yes Does the pt have substance abuse?: No - Immunizations Immunizations are current?: Yes Immunizations: TDAP >10years/unknown - POLST Patient has POLST: No PD ED PE NORMAL - Vitals Vital signs reviewed: Yes - HEENT HEENT: Ears normal, Moist mucous membranes. No: Pharynx benign (PND no exudate or swelling) - Neck Neck: Other (no neck swelling, no pain with tracheal manipulation) - Cardiac Cardiac: RRR - Respiratory Respiratory: No respiratory distress, Clear bilaterally - Abdomen Abdomen: Soft Results - Vitals Vitals: Vital Signs - 24 hr 01/25/18 16:38 Temperature 36.5 C Heart Rate 75 Respiratory 18 Rate Blood Pressure 139/78 H O2 Saturation 100 Oxygen O2 Source Room air - Labs Labs: Laboratory Tests 01/25/18 16:42 Group A Strep Rapid Negative Departure - Departure Disposition: Home, Self Care Clinical Impression: Pharyngitis Qualifiers: Pharyngitis/tonsillitis etiology: unspecified etiology Qualified Code(s): J02.9 - Acute pharyngitis, unspecified Condition: Good Instructions: ED Pharyngitis Viral Report Pending Prescriptions: Dextromethorphan/Benzocaine [Cepacol Sorethroat-Cough Windy] 1 each PO Q4H PRN #20 lozenge PRN Reason: sore throat Comments: The strep test was negative It doesn't look like your throat is swollen or infected right now Might be sore from coughing up post nasal drainage Try the cepacol lozenges as needed. Follow up with your PMD Return if worse
== END 2018-01-25 18:00 | disposition home or self-care (01) ==
LOC: ED 16:34
DX: J02.9 Acute pharyngitis, unspecified (principal); R05 Cough
CPT/HCPCS: 87070; 87430; 99283; A9270

== ENCOUNTER 2018-02-20 14:57 | Emergency (ER) | payer MEDICAID ==
[2018-02-20 15:02] VITALS: BP 129/79
[2018-02-20] MEDS ORDERED: oxyCODONE 5 MG TABLET PO STA (15:14)
[2018-02-20] MEDS ORDERED: MELOXICAM 7.5 MG TABLET PO STA (15:14)
--- NOTE | 2018-02-20 15:14 | ED Physician Documentation ---
PD HPI UPPER EXT INJURY - Stated complaint Stated Complaint: SHOULDER PX - Chief complaint Chief Complaint: Ext Problem - History obtained from History obtained from: Patient, Family - History of Present Illness Location: Right, Shoulder Type of injury: Fall Where injury occurred: Home Timing - onset: How many days ago (4) Timing - duration: Days (4) Timing - details: Abrupt onset Pain level max: 8 Pain level now: 7 Improved by: Rest, Ice, Immobilization Worsened by: Moving, Palpating Associated symptoms: No: Weakness, Numbness, Tingling, Swelling Contributing factors: Prior ortho surgery (rotator cuff repair R shoulder 2 years ago) Recently seen: Not recently seen - Additonal information Additional information: tripped fell, landed on R arm Review of Systems Constitutional: denies: Fever, Chills Throat: denies: Sore throat Cardiac: denies: Chest pain / pressure Respiratory: denies: Cough GI: denies: Vomiting, Diarrhea : denies: Now EGA PD PAST MEDICAL HISTORY - Past Medical History Cardiovascular: Other Respiratory: None Endocrine/Autoimmune: None GI: GERD, 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 : Kidney stones HEENT: None Psych: Depression, Bipolar disorder, Post traumatic stress disorder, Obsessive compulsive disorder Musculoskeletal: None, Chronic back pain Derm: Eczema - Past Surgical History Past Surgical History: Yes General: Cholecystectomy, 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: Hysterectomy, Oophrectomy - Present Medications Home Medications: Ambulatory Orders Medication Instructions Recorded Confirmed QUEtiapine [SEROquel] 300 mg PO QPM 10/01/12 10/07/16 Prazosin [Minipress] 3 mg PO DAILY 09/11/16 10/07/16 metFORMIN [Glucophage] 10/12/17 predniSONE [Prednisone] 60 mg PO DAILY 5 Days #15 tablet 12/07/17 Meloxicam [Mobic] 15 mg PO DAILY PRN #20 tablet 02/20/18 oxyCODONE [Roxicodone] 5 mg PO Q4-6H PRN #14 tablet 02/20/18 - Allergies Allergies/Adverse Reactions: Allergies Allergy/AdvReac Type Severity Reaction Status Date / Time acetaminophen [From Tylenol] Allergy Unknown Verified 02/20/18 15:01 codeine [Codeine] Allergy unknown Verified 02/20/18 15:01 morphine Allergy Unknown Verified 02/20/18 15:01 - Social History Does the pt smoke?: No Smoking Status: Never smoker Does the pt drink ETOH?: Yes Does the pt have substance abuse?: No - Immunizations Immunizations are current?: Yes Immunizations: TDAP >10years/unknown - POLST Patient has POLST: No PD ED PE NORMAL - Vitals Vital signs reviewed: Yes - General General: Alert and oriented X 3, No acute distress - HEENT HEENT: Moist mucous membranes - Neck Neck: Supple, no meningeal sign - Cardiac Cardiac: RRR - Respiratory Respiratory: No respiratory distress, Clear bilaterally - Derm Derm: Warm and dry - Extremities Extremities: Other (R shoulder TTP R AC joint and R anterior glenohumeral joint line.. NVI including axillary nerve. Limited ROM in all directions 2/2 pain.) - Neuro Neuro: Alert and oriented X 3, No motor deficit, No sensory deficit Results - Vitals Vitals: Vital Signs - 24 hr 02/20/18 14:59 Temperature 36.1 C L Heart Rate 68 Respiratory 20 Rate Blood Pressure 129/79 O2 Saturation 100 Oxygen O2 Source Room air - Rads (name of study) R shoulder xray Radiology: Prelim report reviewed, EMP read contemporaneously, See rad report (No acute abnormality) PD MEDICAL DECISION MAKING - ED course Complexity details: reviewed results, re-evaluated patient, considered differential, d/w patient ED course: 37-year-old female with right shoulder pain status post a fall recently. No acute findings on x-ray. Placed in a sling for comfort. Will prescribe a small amount of pain medications and follow-up with her doctor. Limited exam secondary to pain. Patient counseled regarding signs and symptoms for which I believe and urgent re-evaluation would be necessary. Patient with good understanding of and agreement to plan and is comfortable going home at this t [facility] This document was made in part using voice recognition software. While efforts are made to proofread this document, sound alike and grammatical errors may occur. Departure - Departure Disposition: 01 Home, Self Care Clinical Impression: Sprain of shoulder, right Qualifiers: Encounter type: initial encounter Shoulder sprain type: unspecified sprain Qualified Code(s): S43.401A - Unspecified sprain of right shoulder joint, ini tial encounter Condition: Good Instructions: ED Sprain Shoulder Follow-Up: Stephanie Keys ARNP [Primary Care Provider] - [facility] [Provider Group] Prescriptions: Meloxicam [Mobic] 15 mg PO DAILY PRN #20 tablet PRN Reason: pain oxyCODONE [Roxicodone] 5 mg PO Q4-6H PRN #14 tablet PRN Reason: shoulder pain Comments: Follow-up with your doctor or orthopedist on as scheduled. Return if you worsen. Wear the sling until then. Do not drink alcohol or drive while on narcotic pain medicine. Note that many narcotic pain relievers also contain tylenol/acetaminophen. Please ensure that your total dose of acetaminophen from all sources does not exceed 3 grams (3000mg) per day. You may constipated on this medication, take a stool softener such as "Colace" twice a day while you are on it. Also recommend a atnf-azs-opkkfnd laxative such as senna or MiraLAX any day that you do not have a bowel movement. If you received narcotic pain medication in the emergency department, do not drive or operate machinery for the next 24 hours.
--- NOTE | 2018-02-20 15:41 | XRAY Report ---
Reason: fall 3 days ago, R shoulder pain Procedure Date: 02/20/2018 Accession Number: [id number] / [id number] Procedure: XR - Shoulder 3 View RT CPT Code: FULL RESULT: EXAM: RIGHT SHOULDER RADIOGRAPHY EXAM DATE: 02/20/2018 03:27 PM. CLINICAL HISTORY: Fall 3 days ago, R shoulder pain. COMPARISON: CHEST 1 VIEW 12/20/2017 3:01 PM. TECHNIQUE: 3 views. FINDINGS: Bones: No acute fracture or dislocation. Joints: The glenohumeral and acromioclavicular joints are intact. Soft tissues: Unremarkable. IMPRESSION: No acute fracture or dislocation of the right shoulder. RADIA
== END 2018-02-20 15:58 | disposition home or self-care (01) ==
LOC: ED 14:57
DX: S43.401A Unspecified sprain of right shoulder joint, initial encounter (principal); W18.30XA Fall on same level, unspecified, initial encounter; W22.09XA Striking against other stationary object, initial encounter; Y92.009 Unspecified place in unspecified non-institutional (private) residence as the place of occurrence of the external cause
CPT/HCPCS: 73030; 99283; A9270

== ENCOUNTER 2018-04-29 11:40 | Outpatient (CLI) | payer OTHER, MEDICAID ==
[2018-04-29 19:20] LABS: HB2 TOTAL 14.8 g/dL; HEMOGLOBIN A1C 0.64 g/dL; HEMOGLOBIN A1C % 6.1 % (4.6-6.2)
== END 2018-04-29 11:41 | disposition home or self-care (01) ==
LOC: LAB.N 11:40
PROVIDERS: ATTEND Nurse Practitioner Gerontology
DX: E11.9 Type 2 diabetes mellitus without complications (principal)
CPT/HCPCS: 36415; 83036

== ENCOUNTER 2018-05-20 20:40 | Outpatient (CLI) | payer OTHER, MEDICAID | END 2018-05-20 20:41 | disposition critical access hospital (66) | LOC: EMS 20:40 | PROVIDERS: ATTEND Surgery | DX: R05 Cough (principal) | CPT/HCPCS: A0425; A0427 ==

== ENCOUNTER 2018-05-20 20:55 | Emergency (ER) | payer OTHER, MEDICAID ==
[2018-05-20] MEDS ORDERED: LACTATED RINGERS 1,000 ML IV STA (21:01)
[2018-05-20] MEDS ORDERED: LORazepam 2 MG/ML VIAL IM STA (21:01)
--- NOTE | 2018-05-20 21:03 | ED Physician Documentation ---
History of Present Illness - Stated complaint Stated Complaint: SOA/CHOKING - History obtained from History obtained from: Patient, Family, EMS - History of Present Illness Timing: Today Pain level max: 0 Pain level now: 0 Improved by: nothing Worsened by: nothing - Additonal information Additional information: 37-year-old female with a coughing episode after eating today and choking. States this is happened to her several times in the past. Has been intubated x2. 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: Uterine cancer : Kidney stones HEENT: None Psych: Depression, Bipolar disorder, Post traumatic stress disorder, Obsessive compulsive disorder Musculoskeletal: None, Chronic back pain Derm: Eczema - Past Surgical History Past Surgical History: Yes General: Cholecystectomy, 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: Hysterectomy, Oophrectomy - Present Medications Home Medications: Ambulatory Orders Medication Instructions Recorded Confirmed QUEtiapine [SEROquel] 300 mg PO QPM 10/01/12 10/07/16 Prazosin [Minipress] 3 mg PO DAILY 09/11/16 10/07/16 metFORMIN [Glucophage] 10/12/17 predniSONE [Prednisone] 60 mg PO DAILY 5 Days #15 tablet 12/07/17 Meloxicam [Mobic] 15 mg PO DAILY PRN #20 tablet 02/20/18 oxyCODONE [Roxicodone] 5 mg PO Q4-6H PRN #14 tablet 02/20/18 - Allergies Allergies/Adverse Reactions: Allergies Allergy/AdvReac Type Severity Reaction Status Date / Time acetaminophen [From Tylenol] Allergy Unknown Verified 05/20/18 21:08 codeine [Codeine] Allergy unknown Verified 05/20/18 21:08 morphine Allergy Unknown Verified 05/20/18 21:08 - Social History Does the pt smoke?: No Smoking Status: Never smoker Does the pt drink ETOH?: Yes Does the pt have substance abuse?: No - Immunizations Immunizations are current?: Yes Immunizations: TDAP >10years/unknown - POLST Patient has POLST: No PD ED PE NORMAL - Vitals Vital signs reviewed: Yes - General General: Alert and oriented X 3 - HEENT HEENT: Moist mucous membranes - Neck Neck: Supple, no meningeal sign, Other (no stridor, no wheezing) - Cardiac Cardiac: RRR, Strong equal pulses - Respiratory Respiratory: No respiratory distress, Clear bilaterally - Abdomen Abdomen: Soft, Non tender, Non distended - Derm Derm: Warm and dry - Neuro Neuro: Alert and oriented X 3 - Psych Psych: Other (very anxious appearing) Results - Vitals Vitals: Vital Signs - 24 hr 05/20/18 05/20/18 05/20/18 21:05 21:08 21:34 Temperature Heart Rate 66 85 145 H Respiratory 30 H Rate Blood Pressure 139/102 H O2 Saturation 100 98 99 05/20/18 05/20/18 05/20/18 21:50 22:03 22:41 Temperature 37.0 C Heart Rate 152 H 134 H 115 H Respiratory 30 H 30 H 17 Rate Blood Pressure 143/103 H 155/95 H O2 Saturation 97 100 05/20/18 05/20/18 23:02 23:26 Temperature Heart Rate 112 H 102 H Respiratory 17 Rate Blood Pressure 129/83 H O2 Saturation 98 Oxygen O2 Source Room air - Labs Labs: Laboratory Tests 05/20/18 05/20/18 21:25 22:49 WBC 8.4 RBC 4.19 L Hgb 13.8 Hct 40.2 MCV 96.0 MCH 32.8 H MCHC 34.2 RDW 12.1 Plt Count 390 MPV 7.6 L Neut # (Auto) 4.4 Lymph # (Auto) 3.3 [place] # (Auto) 0.4 Eos # (Auto) 0.2 Baso # (Auto) 0.1 Absolute Nucleated RBC 0.01 Nucleated RBC % 0.1 Sodium 138 Potassium 3.4 L Chloride 104 Carbon Dioxide 25 Anion Gap 9.0 BUN 9 Creatinine 0.8 Estimated GFR (MDRD) 80 L Glucose 123 H Calcium 9.1 Total Bilirubin 0.5 AST 25 ALT 26 Alkaline Phosphatase 61 Total Protein 7.3 Albumin 4.2 Globulin 3.1 Albumin/Globulin Ratio 1.4 Lipase 25 PD MEDICAL DECISION MAKING - ED course Complexity details: reviewed results, re-evaluated patient, considered differential, d/w patient, d/w family ED course: 37-year-old female with what appears to be a choking episode leading to persistent coughing. She was given Ativan IM, racemic epinephrine and continued to cough. An IV was unable to be established and she was given IV Ativan which broke her symptoms. No stridor. No wheezing. No recurrence. Was given a dose of oxycodone for pain. We will have her follow-up with her doctor for further care. She request to go home at this time. Patient counseled regarding signs and symptoms for which I believe and urgent re-evaluation would be necessary. Patient with good understanding of and agreement to plan and is comfortable going home at this time This document was made in part using voice recognition software. While efforts are made to proofread this document, sound alike and grammatical errors may occur. Departure - Departure Disposition: 01 Home, Self Care Clinical Impression: Choking Qualifiers: Encounter type: initial encounter Qualified Code(s): T17.308A - Unspecified foreign body in larynx causing other injury, initial encounter Condition: Good Instructions: ED Choking Spell Follow-Up: your,doctor in 1 week [Other] Comments: Follow up with your doctor for further care. Return if you worsen Discharge Date/Time: 05/20/18 23:26
[2018-05-20] MEDS ORDERED: LIDOCAINE TOPICAL 4% 160 MG/4 ML KIT TOP STA (21:09)
[2018-05-20] MEDS ORDERED: LIDOCAINE TOPICAL 4% 50 ML BOTTLE MM STA (21:13)
[2018-05-20] MEDS ORDERED: RACEPINEPHRINE 2.25% NEB INH STA (21:29)
[2018-05-20 21:37] LABS: BASOPHILS # (AUTO) 0.1 10^3/uL (0.0-0.1); BASOPHILS % (AUTO) 1.3 %; EOSINOPHILS # (AUTO) 0.2 10^3/uL (0.0-0.7); EOSINOPHILS % (AUTO) 2.5 %; HGB - HEMOGLOBIN 13.8 g/dL (12.0-16.0); LYMPHOCYTES # (AUTO) 3.3 10^3/uL (1.5-3.5); LYMPHOCYTES % (AUTO) 39.4 %; MEAN CORPUSCULAR HEMOGLOBIN 32.8 pg (27.0-31.0); MEAN CORPUSCULAR HGB CONC 34.2 g/dL (32.0-36.0); MEAN PLATELET VOLUME 7.6 fL (7.9-10.8); MONOCYTES # (AUTO) 0.4 10^3/uL (0.0-1.0); MONOCYTES % (AUTO) 5.1 %; NEUTROPHILS # (AUTO) 4.4 10^3/uL (1.5-6.6); NEUTROPHILS % (AUTO) 51.7 %; PLT - PLATELET COUNT 390 10^3/uL (130-450); RED BLOOD COUNT 4.19 10^6/uL (4.20-5.40); RED CELL DISTRIBUTION WIDTH 12.1 % (12.0-15.0); WHITE BLOOD COUNT 8.4 x10^3/uL (4.8-10.8)
[2018-05-20] MEDS ORDERED: LORazepam 2 MG/ML VIAL IVP STA (21:45)
[2018-05-20] MEDS ORDERED: KETAMINE 500 MG/10 ML VIAL IM STA ×2 (21:57→22:11)
[2018-05-20] MEDS ORDERED: LORazepam 2 MG/ML VIAL ONE (22:05)
[2018-05-20] MEDS ORDERED: oxyCODONE 5 MG TABLET PO STA (22:40)
[2018-05-20 23:03] VITALS: BP 129/83
[2018-05-20 23:07] LABS: ALBUMIN 4.2 g/dL (3.2-5.5); ALBUMIN/GLOBULIN RATIO 1.4 (1.0-2.2); BILIRUBIN,TOTAL 0.5 mg/dL (0.2-1.0); CALCIUM 9.1 mg/dL (8.5-10.3); CREATININE 0.8 mg/dL (0.4-1.0); TOTAL PROTEIN 7.3 g/dL (6.7-8.2)
== END 2018-05-20 23:26 | disposition home or self-care (01) ==
LOC: EDBD → EDUNIT# → ED 20:55
DX: T17.908A Unspecified foreign body in respiratory tract, part unspecified causing other injury, initial encounter (principal); R05 Cough; F41.9 Anxiety disorder, unspecified
CPT/HCPCS: 36415; 80053; 83690; 85025; 94640; 96372; 96374; 99284; A9270; J2060; J7120

== ENCOUNTER 2018-07-20 14:55 | Outpatient (CLI) | payer OTHER ==
--- NOTE | 2018-07-21 09:09 | DEXA Report ---
Reason: MENOPAUSE, EARLY Procedure Date: 07/20/2018 Accession Number: [id number] / [id number] Procedure: DEX - Dexa Spine and/or Hip CPT Code: FULL RESULT: EXAM: Dexa Spine and/or Hip DATE: 07/20/2018 3:42 PM CLINICAL HISTORY: MENOPAUSE, EARLY TECHNIQUE: Dual energy x-ray absorptiometry (DXA) was performed on a [employer] System. Regions measured are the AP Spine, femoral neck, and if needed forearm. COMPARISON: None. In accordance with the International Society for Clinical Densitometry (ISCD) guidelines, data from previous exams may be reanalyzed using current recommendations and techniques. This is done to allow a more accurate basis for comparison with the current study. FINDINGS: The data for the lumbar spine is as follows: BMD (g/cm/cm) T-SCORE Z-SCORE REGION L1 1.044 -0.7 -1.8 L2 1.214 0.1 -0.9 L3 1.127 -0.6 -1.7 L4 1.107 -0.8 -1.8 TOTAL 1.125 -0.5 -1.5 NOTE: All evaluable vertebrae are used for classification The data for the hip is as follows: BMD (g/cm/cm) T-SCORE Z-SCORE REGION Neck 0.967 -0.5 -0.8 TOTAL 1.028 0.2 -0.4 NOTE: The femoral neck or total proximal femur, whichever is lowest, is used for classification. IMPRESSION: THE WHO CLASSIFICATION BASED ON THE INTERNATIONAL REFERENCE STANDARD IS NORMAL. THE FRACTURE RISK IS NOT INCREASED. RECOMMENDATION: Patients with diagnosis of osteoporosis or osteopenia should have regular bone mineral density assessment. For those eligible for Medicare, routine testing is allowed once every 2 years. Testing frequency can be increased for patients who have rapidly progressing disease or for those who are receiving medical therapy to restore bone mass. COMMENT: World Health Organization (WHO) definitions for osteoporosis and osteopenia: NORMAL BMD: T-score at -1.0 or higher, fracture risk is low OSTEOPENIA BMD: T-score between -1.0 and -2.5, fracture risk is increased. OSTEOPOROSIS BMD: T-score at -2.5 or lower, fracture risk is high. National Osteoporosis Foundation recommends: 1. Obtain adequate dietary calcium (at least 1200 mg per day) and vitamin D (400-800 international units per day). 2. Participate, as appropriate, in regular weightbearing and muscle-strengthening exercise. 3. Avoid tobacco use and reduce alcohol and caffeine intake. 4. For more detailed information see the website at www.NOF.org.
== END 2018-07-20 14:56 | disposition home or self-care (01) ==
LOC: DI 14:55 → MERGE 15:30
PROVIDERS: ATTEND Physician Assistant
DX: E28.319 Asymptomatic premature menopause (principal)
CPT/HCPCS: 77080

== ENCOUNTER 2018-08-02 10:50 | Outpatient (CLI) | payer OTHER, MEDICAID ==
[2018-08-02 19:03] LABS: BASOPHILS # (AUTO) 0.1 10^3/uL (0.0-0.1); BASOPHILS % (AUTO) 1.1 %; EOSINOPHILS # (AUTO) 0.2 10^3/uL (0.0-0.7); EOSINOPHILS % (AUTO) 3.2 %; LYMPHOCYTES # (AUTO) 2.3 10^3/uL (1.5-3.5); LYMPHOCYTES % (AUTO) 35.5 %; MEAN CORPUSCULAR HEMOGLOBIN 33.6 pg (27.0-31.0); MEAN CORPUSCULAR HGB CONC 33.9 g/dL (32.0-36.0); MEAN CORPUSCULAR VOLUME 99.1 fL (81.0-99.0); MONOCYTES # (AUTO) 0.4 10^3/uL (0.0-1.0); MONOCYTES % (AUTO) 6.9 %; NEUTROPHILS # (AUTO) 3.5 10^3/uL (1.5-6.6); NEUTROPHILS % (AUTO) 53.3 %; PLT - PLATELET COUNT 322 10^3/uL (130-450); RED BLOOD COUNT 3.87 10^6/uL (4.20-5.40); RED CELL DISTRIBUTION WIDTH 12.8 % (12.0-15.0); WHITE BLOOD COUNT 6.5 x10^3/uL (4.8-10.8)
[2018-08-02 19:11] LABS: ALBUMIN/GLOBULIN RATIO 1.5 (1.0-2.2); BILIRUBIN,TOTAL 0.6 mg/dL (0.2-1.0); CALCIUM 9.4 mg/dL (8.5-10.3); CREATININE 0.8 mg/dL (0.4-1.0); TOTAL PROTEIN 6.7 g/dL (6.7-8.2)
[2018-08-02 19:47] LABS: HB2 TOTAL 14.1 g/dL; HEMOGLOBIN A1C 0.66 g/dL; HEMOGLOBIN A1C % 6.4 % (4.6-6.2)
== END 2018-08-02 10:51 | disposition home or self-care (01) ==
LOC: LAB.WCP 10:50
PROVIDERS: ATTEND Physician Assistant
DX: E11.9 Type 2 diabetes mellitus without complications (principal)
CPT/HCPCS: 36415; 80053; 83036; 85025

== ENCOUNTER 2018-08-23 10:13 | Outpatient (CLI) | payer OTHER, MEDICAID ==
[2018-08-23 12:56] LABS: CHOL/HDL RATIO 6.2 (<4.4); CHOLESTEROL 237 mg/dL; HDL CHOLESTEROL 38 mg/dL; LDL CHOLESTEROL,CALCULATED 140 mg/dL; LDL/HDL RATIO 3.7 (<4.4); VLDL CHOLESTEROL 59 mg/dL
[2018-08-23 13:10] LABS: FOLLICLE STIMULATING HORMONE 4.94 mIU/mL
[2018-08-23 13:11] LABS: LUTEINIZING HORMONE 5.66 mIU/mL
== END 2018-08-23 10:14 | disposition home or self-care (01) ==
LOC: LAB.WCP 10:13
PROVIDERS: ATTEND Obstetrics & Gynecology
DX: E78.5 Hyperlipidemia, unspecified (principal); Z90.710 Acquired absence of both cervix and uterus
CPT/HCPCS: 36415; 80061; 82670; 83001; 83002; 83721

== ENCOUNTER 2018-10-05 21:30 | Outpatient (CLI) | payer OTHER, MEDICAID | END 2018-10-05 21:31 | disposition critical access hospital (66) | LOC: EMS 21:30 | PROVIDERS: ATTEND Surgery | DX: R05 Cough (principal); R06.00 Dyspnea, unspecified | CPT/HCPCS: A0425; A0429 ==

== ENCOUNTER 2018-10-05 21:48 | Emergency (ER) | payer OTHER, MEDICAID ==
--- NOTE | 2018-10-05 21:58 | ED Physician Documentation ---
PD HPI DYSPNEA - Stated complaint Stated Complaint: COUGH WITH EXP. WHEEZE - History obtained from History obtained from: Patient - History of Present Illness Timing - onset: How many hours ago (1) Timing - onset during: Rest, Light activity (She was eating and someone made her laugh and she states she felt some of the liquid in her throat and developed spasm. She has had this happen several times previously. One was a choking episode apparently initially and had some respiratory distress related to it and did end up intubated. She had another intubation on another episode with respiratory stridor ring and difficulty. Subsequently she has had couple of laryngeal spasm type episodes treated with medications.) Timing - duration: Hours (1) Timing - details: Abrupt onset, Still present Inciting event(s): No: URI, FB / choking (started with laughing while had some soup/food in her mouth, but not choking per se; caused spasms of throat/airway.) Improved by: No: Rest, Sitting up Worsened by: Coughing Associated symptoms: Cough, Wheezing. No: Fever, Hemoptysis Recently seen: Clinic (She had a recent bronchoscopy with some removal of granulomatous tissue that has developed subsequent to prior throat problem and apparent intubation. She has had a few laryngo-spastic episodes previously. 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 She just had some bronchoscopic removal of some of those granulomatous tissue distal last week or 2 by ENT in [place].) Psych: Obsessive compulsive disorder, Bipolar disorder, Depression, Post traumatic stress disorder Musculoskeletal: None, Chronic back pain Derm: Eczema - Past Surgical History Past Surgical History: Yes General: Cholecystectomy, 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 /REVENUE MANAGER: Hysterectomy, Oophrectomy - Present Medications Home Medications: Ambulatory Orders Medication Instructions Recorded Confirmed QUEtiapine [SEROquel] 300 mg PO QPM 10/01/12 10/07/16 Prazosin [Minipress] 3 mg PO DAILY 09/11/16 10/07/16 metFORMIN [Glucophage] 10/12/17 predniSONE [Prednisone] 60 mg PO DAILY 5 Days #15 tablet 12/07/17 Meloxicam [Mobic] 15 mg PO DAILY PRN #20 tablet 02/20/18 oxyCODONE [Roxicodone] 5 mg PO Q4-6H PRN #14 tablet 02/20/18 dexAMETHasone [Decadron] 4 mg PO DAILY #5 tablet 10/06/18 diazePAM [Diazepam] 5 mg PO Q8H PRN #20 tablet 10/06/18 - Allergies Allergies/Adverse Reactions: Allergies Allergy/AdvReac Type Severity Reaction Status Date / Time acetaminophen [From Tylenol] Allergy Unknown Verified 07/15/18 15:17 codeine [Codeine] Allergy unknown Verified 07/15/18 15:17 morphine Allergy Unknown Verified 07/15/18 15:17 - Social History Does the pt smoke?: No Smoking Status: Never smoker Does the pt drink ETOH?: Yes Does the pt have substance abuse?: No - Immunizations Immunizations are current?: Yes Immunizations: TDAP >10years/unknown - POLST Patient has POLST: No PD ED PE NORMAL - Vitals Vital signs reviewed: Yes - General General: Other (She is in marked distress with tachypnea and tachycardia and stridorous inspirations as well as some wheezing expirations. Her oxygenation is actually adequate. She is coughing intermittently as well. She appears red- faced. There is no dusky color.) - HEENT HEENT: Pharynx benign - Neck Neck: Supple, no meningeal sign, No adenopathy - Cardiac Cardiac: No: RRR (tachy but regular) - Respiratory Respiratory: Other (Tachypnea and tachycardia with Tory stridor during and expiratory wheezing and anxiety. There is repetitive coughing. There is no chest accessory muscle use however. Her oxygenation is adequate.) - Abdomen Abdomen: Normal bowel sounds, Soft, Non tender - Derm Derm: Normal color, Warm and dry - Extremities Extremities: No deformity, No tenderness to palpate, No edema, No calf tenderness / cord - Neuro Neuro: No motor deficit. No: Normal speech Results - Vitals Vitals: Vital Signs - 24 hr 10/05/18 10/05/18 10/05/18 21:58 22:05 22:14 Temperature 36.6 C Heart Rate 129 H 138 H 149 H Respiratory 35 H 22 Rate Blood Pressure 144/122 H O2 Saturation 99 100 10/05/18 10/05/18 10/05/18 22:27 23:00 23:42 Temperature Heart Rate 165 H 139 H 109 H Respiratory 31 H 40 H 18 Rate Blood Pressure 94/60 134/70 H O2 Saturation 100 99 97 10/06/18 10/06/18 10/06/18 00:00 00:30 01:00 Temperature Heart Rate 95 93 88 Respiratory 14 13 14 Rate Blood Pressure 121/73 103/73 108/79 O2 Saturation 97 98 99 10/06/18 10/06/18 01:30 02:00 Temperature Heart Rate 87 101 H Respiratory 13 16 Rate Blood Pressure 114/81 H 137/96 H O2 Saturation 99 100 Oxygen O2 Source Room air PD MEDICAL DECISION MAKING - ED course Complexity details: re-evaluated patient (Initial IV access was difficult and she was given IM medications initially of Versed and ketamine. However this did not have only mild effect. She is given a repeat dose IM and also subsequently IV access was obtained and she was then given IV Ativan and fentanyl with much better improvement. She is given nebulized treatments as well though I do not think it was true asthmatic type. The emphasis was on the coolmist aspect. She did have subsequent improvement in her symptoms. She had had recent surgical removal by scope of some granulation tissue so there may be some inflammation as well. She is given Toradol and Decadron as well. She was subsequently watched for 2 to 3 hours with easy breathing and feeling comfortable. She is given coolmist blow-by during that time. She subsequently awoke and was feeling relaxed and comfortable enough to head home.), considered differential (Sounds like laryngospasm take episode. She may have a little edema from recent removal of granulomatous tissue around the larynx and vocal cords. Initial emphasis would be to improve the breathing and reduce the spasming and anxiety. Her and family members equate her being intubated with improving her symptoms in the past. However I think it was more likely the medications to sedate her prior to intubation that actually were what improved her. Review of up-to-date subsequently reinforced the idea of trying to avoid intubation as this further injures the vocal cords.), d/w patient, d/w family (The patient and her and family were all pushing for intubation as that seemed to have helped her in the past and remove the work of breathing. However I discussed with them I would like to work on reducing the spasm component and the pain component as repeated intubation is going to worsen injury of the cord and subsequent granulation tissue. This typically would be spastic and antispasmodics and sedation medicines are the main treatments. I subsequently referred to up-to-date to evaluate and that was the proscribed course of treatment with the emphasizing and trying not to intubate. I did convey my train of thought to the family.) Departure - Departure Disposition: 01 Home, Self Care Clinical Impression: Laryngospasm, Respiratory distress Condition: Stable Record reviewed to determine appropriate education?: Yes Follow-Up: Sol Reaves PA [Primary Care Provider] - Prescriptions: dexAMETHasone [Decadron] 4 mg PO DAILY #5 tablet diazePAM [Diazepam] 5 mg PO Q8H PRN #20 tablet PRN Reason: Spasms Comments: Clear liquids or soft food for the next day or so. No vigorous exertional activity to maintain easier breathing. Decadron steroid anti-inflammatory daily for 5 more days in case there is some swelling around the vocal cords and larynx. You can use diazepam every 6-8 hours if needed for spasms. Tylenol if needed for pains and add naproxen or ibuprofen as needed. Return as needed for repeat episodes.
[2018-10-05] MEDS ORDERED: LIDOCAINE TOPICAL 4% 50 ML BOTTLE MM STA (22:05)
[2018-10-05] MEDS ORDERED: ALBUTEROL NEB 2.5 MG/3 ML INH STA (22:06)
[2018-10-05] MEDS ORDERED: MIDAZOLAM 2 MG/2 ML VIAL IM STA ×2 (22:06→22:41)
[2018-10-05] MEDS ORDERED: GLUCAGON 1 MG/ML VIAL IM STA (22:07)
[2018-10-05] MEDS ORDERED: WATER FOR INJECTION,STERILE 10 ML ONE (22:23)
[2018-10-05] MEDS ORDERED: KETAMINE 500 MG/10 ML VIAL IM STA (22:41)
[2018-10-05] MEDS ORDERED: LORazepam 2 MG/ML VIAL IVP STA ×2 (23:20→23:51)
[2018-10-05] MEDS ORDERED: SODIUM CHLORIDE 0.9% 1,000 ML IV ONE (23:21)
[2018-10-05] MEDS ORDERED: fentaNYL 100 MCG/2 ML VIAL IVP STA ×2 (23:21→23:51)
[2018-10-06] MEDS ORDERED: KETOROLAC 30 MG/ML VIAL IVP STA (00:02)
[2018-10-06] MEDS ORDERED: DEXAMETHASONE 10 MG/ML VIAL IVP STA (00:02)
[2018-10-06 03:25] VITALS: BP 113/79
== END 2018-10-06 03:42 | disposition home or self-care (01) ==
LOC: EDUNIT# → ED 21:48
DX: J38.5 Laryngeal spasm (principal); R06.03 Acute respiratory distress
CPT/HCPCS: 94640; 96361; 96372; 96374; 96375; 96376; 99284; 99285; J2060

== ENCOUNTER 2018-10-12 13:30 | Outpatient (CLI) | payer OTHER, MEDICAID | END 2018-10-12 13:31 | disposition short-term general hospital (02) | LOC: EMS 13:30 | PROVIDERS: ATTEND Surgery | DX: R55 Syncope and collapse (principal); R41.82 Altered mental status, unspecified | CPT/HCPCS: A0425; A0427 ==

== ENCOUNTER 2018-11-15 08:00 | Outpatient (CLI) | payer OTHER, MEDICAID ==
[2018-11-16 09:43] LABS: HB2 TOTAL 12.5 g/dL; HEMOGLOBIN A1C 0.64 g/dL; HEMOGLOBIN A1C % 6.8 % (4.6-6.2)
== END 2018-11-15 23:59 ==
LOC: LAB.R 08:00
PROVIDERS: ATTEND Physician Assistant
DX: E11.9 Type 2 diabetes mellitus without complications (principal)
CPT/HCPCS: 83036

== ENCOUNTER 2018-11-15 08:00 | Outpatient (CLI) | payer OTHER, MEDICAID ==
[2018-11-15 12:13] LABS: BASOPHILS # (AUTO) 0.1 10^3/uL (0.0-0.1); BASOPHILS % (AUTO) 1.1 %; EOSINOPHILS # (AUTO) 0.4 10^3/uL (0.0-0.7); EOSINOPHILS % (AUTO) 4.6 %; HGB - HEMOGLOBIN 11.9 g/dL (12.0-16.0); LYMPHOCYTES % (AUTO) 23.8 %; MEAN CORPUSCULAR HGB CONC 32.3 g/dL (32.0-36.0); MEAN CORPUSCULAR VOLUME 98.9 fL (81.0-99.0); MEAN PLATELET VOLUME 10.1 fL (7.9-10.8); MONOCYTES # (AUTO) 0.5 10^3/uL (0.0-1.0); MONOCYTES % (AUTO) 6.4 %; NEUTROPHILS # (AUTO) 5.2 10^3/uL (1.5-6.6); NEUTROPHILS % (AUTO) 63.4 %; PLT - PLATELET COUNT 309 10^3/uL (130-450); RED BLOOD COUNT 3.72 10^6/uL (4.20-5.40); RED CELL DISTRIBUTION WIDTH 12.1 % (12.0-15.0); WHITE BLOOD COUNT 8.3 x10^3/uL (4.8-10.8)
[2018-11-15 12:36] LABS: ALBUMIN 3.7 g/dL (3.2-5.5); ALBUMIN/GLOBULIN RATIO 1.2 (1.0-2.2); BILIRUBIN,TOTAL 0.3 mg/dL (0.2-1.0); CALCIUM 9.4 mg/dL (8.5-10.3); CREATININE 0.7 mg/dL (0.4-1.0); TOTAL PROTEIN 6.8 g/dL (6.7-8.2)
== END 2018-11-15 08:01 | disposition home or self-care (01) ==
LOC: LAB.WCP 08:00
PROVIDERS: ATTEND Physician Assistant
DX: R53.83 Other fatigue (principal)
CPT/HCPCS: 36415; 80053; 84443; 85025

== ENCOUNTER 2019-03-07 10:34 | Outpatient (CLI) | payer OTHER, MEDICAID ==
[2019-03-07 12:07] LABS: BASOPHILS # (AUTO) 0.1 10^3/uL (0.0-0.1); BASOPHILS % (AUTO) 1.3 %; EOSINOPHILS # (AUTO) 0.2 10^3/uL (0.0-0.7); EOSINOPHILS % (AUTO) 3.4 %; HGB - HEMOGLOBIN 14.2 g/dL (12.0-16.0); LYMPHOCYTES # (AUTO) 1.9 10^3/uL (1.5-3.5); LYMPHOCYTES % (AUTO) 35.4 %; MEAN CORPUSCULAR HEMOGLOBIN 32.3 pg (27.0-31.0); MEAN CORPUSCULAR HGB CONC 33.9 g/dL (32.0-36.0); MEAN CORPUSCULAR VOLUME 95.2 fL (81.0-99.0); MEAN PLATELET VOLUME 10.4 fL (7.9-10.8); MONOCYTES # (AUTO) 0.3 10^3/uL (0.0-1.0); MONOCYTES % (AUTO) 5.3 %; NEUTROPHILS # (AUTO) 2.9 10^3/uL (1.5-6.6); NEUTROPHILS % (AUTO) 54.4 %; PLT - PLATELET COUNT 271 10^3/uL (130-450); RED CELL DISTRIBUTION WIDTH 11.2 % (12.0-15.0); WHITE BLOOD COUNT 5.3 x10^3/uL (4.8-10.8)
[2019-03-07 12:16] LABS: HB2 TOTAL 14.3 g/dL; HEMOGLOBIN A1C 1.11 g/dL; HEMOGLOBIN A1C % 9.3 % (4.6-6.2)
[2019-03-07 12:21] LABS: ALBUMIN 4.2 g/dL (3.2-5.5); ALBUMIN/GLOBULIN RATIO 1.5 (1.0-2.2); ALKALINE PHOSPHATASE 56 IU/L (42-121); ALT ALANINE AMINOTRANSFERASE 30 IU/L (10-60); AST ASPARTATE AMINOTRANSFERASE 33 IU/L (10-42); BILIRUBIN,TOTAL 0.9 mg/dL (0.2-1.0); BUN - BLOOD UREA NITROGEN 12 mg/dL (6-20); CALCIUM 8.8 mg/dL (8.5-10.3); CARBON DIOXIDE - CO2 22 mmol/L (21-32); CHLORIDE 105 mmol/L (101-111); CHOL/HDL RATIO 6.6 (<4.4); CHOLESTEROL 263 mg/dL; CREATININE 0.7 mg/dL (0.4-1.0); GFR - MDRD 93 (>89); GLUCOSE 208 mg/dL (70-100); HDL CHOLESTEROL 40 mg/dL; SODIUM 135 mmol/L (135-145)
[2019-03-07 12:54] LABS: CREATININE,URINE 275.2 mg/dL; MICROALBUM/CREATININE RATIO,UR 1.8 ug/mg (<30.0); MICROALBUMIN,URINE 0.5 mg/dL (0-300.0)
[2019-03-07 14:03] LABS: LDL CHOLESTEROL,DIRECT 141 mg/dL; LDLD/HDL RATIO 3.5 (<4.4)
== END 2019-03-07 23:59 | disposition home or self-care (01) ==
LOC: LAB.WCP 10:34
PROVIDERS: ATTEND Physician Assistant
DX: E11.9 Type 2 diabetes mellitus without complications (principal)
CPT/HCPCS: 36415; 80053; 80061; 82043; 82570; 83036; 83721; 85025

== ENCOUNTER 2019-09-01 21:08 | Emergency (ER) | payer OTHER, MEDICAID ==
--- NOTE | 2019-09-01 21:48 | XRAY Report ---
PROCEDURE: Forearm LT INDICATIONS: fell @ work/injury to L arm/hand wrist. TECHNIQUE: 2 views of the forearm were acquired. COMPARISON: None. FINDINGS: Bones: No fractures or dislocations. No suspicious bony lesions. Soft tissues: No suspicious soft tissue calcifications or masses. IMPRESSION: No fracture. Reviewed by: Sin Nina MD on 09/01/2019 9:47 PM PDT Approved by: Sin Nina MD on 09/01/2019 9:47 PM PDT Station ID: [id number]
--- NOTE | 2019-09-01 21:50 | XRAY Report ---
PROCEDURE: Wrist 3 View LT INDICATIONS: Fell/injury to L wrist TECHNIQUE: 3 views of the wrist were acquired. COMPARISON: None. FINDINGS: Bones: No fractures or dislocations. No suspicious bony lesions. Soft tissues: No suspicious soft tissue calcifications. IMPRESSION: No fracture. Reviewed by: Sin Nina MD on 09/01/2019 9:48 PM PDT Approved by: Sin Nina MD on 09/01/2019 9:48 PM PDT Station ID: [id number]
--- NOTE | 2019-09-01 21:51 | XRAY Report ---
PROCEDURE: Hand 3 View LT INDICATIONS: fell/injury to L hand; c/o pain TECHNIQUE: 3 views of the hand(s) acquired. COMPARISON: None. FINDINGS: Bones: No fractures or dislocations. No suspicious bony lesions. Soft tissues: No suspicious soft tissue calcifications. IMPRESSION: No definite fracture however follow-up radiographs in 10 days could be performed if the patient's sym ptoms do not improve to exclude occult fracture/assess for healing sclerosis. Reviewed by: Sin Nina MD on 09/01/2019 9:50 PM PDT Approved by: Sin Nina MD on 09/01/2019 9:50 PM PDT Station ID: [id number]
--- NOTE | 2019-09-02 00:33 | ED Physician Documentation ---
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 She states that she stepped in a hole and tripped, falling forward and catching herself on her left outstretched hand on concrete. Patient states she was not hurt in any other way but she has had a shooting pain up through her hypothenar eminence area/ulnar aspect of her hand through her wrist and proximal forearm. Review of Systems Ten Systems: 10 systems reviewed and negative Constitutional: reports: Reviewed and negative Eyes: reports: Reviewed and negative Ears: reports: Reviewed and negative Nose: reports: Reviewed and negative Throat: reports: Reviewed and negative Cardiac: reports: Reviewed and negative Respiratory: reports: Reviewed and negative GI: reports: Reviewed and negative : reports: Reviewed and negative Skin: reports: Reviewed and negative Musculoskeletal: reports: Extremity pain Neurologic: reports: Reviewed and negative Psychiatric: reports: Reviewed and negative Endocrine: reports: Reviewed and negative Immunocompromised: reports: Reviewed and negative PD PAST MEDICAL HISTORY - Past Medical History Past Medical History: Yes Cardiovascular: High cholesterol, Other Respiratory: None Neuro: None Endocrine/Autoimmune: Type 2 diabetes GI: GERD, Hiatal hernia, Chronic constipation, Other CAN RECONDITIONER: Uterine cancer : Kidney stones HEENT: Other Psych: Depression, Anxiety, Bipolar disorder, Post traumatic stress disorder, Obsessive compulsive disorder Musculoskeletal: None, Chronic back pain Derm: Eczema - Past Surgical History Past Surgical History: Yes General: Cholecystectomy, 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 /CAN RECONDITIONER: Hysterectomy, Oophrectomy HEENT: Other - Present Medications Home Medications: Ambulatory Orders Medication Instructions Recorded Confirmed Prazosin [Minipress] 10 mg PO DAILY 09/11/16 04/29/19 metFORMIN [Glucophage] 1,000 mg PO BID 10/12/17 04/29/19 LORazepam [Ativan] 0.5 mg PO BID PRN 04/29/19 04/29/19 Meloxicam [Mobic] 7.5 mg PO DAILY PRN 04/29/19 04/29/19 Omeprazole 40 mg PO BID 04/29/19 04/29/19 Quetiapine Fumarate 300 mg PO DAILY 04/29/19 04/29/19 Sertraline HCl [Zoloft] 150 mg PO DAILY 04/29/19 04/29/19 Trazodone HCl 50 mg PO DAILY 04/29/19 04/29/19 - Allergies Allergies/Adverse Reactions: Allergies Allergy/AdvReac Type Severity Reaction Status Date / Time acetaminophen [From Tylenol] Allergy Unknown Verified 09/01/19 21:14 codeine [Codeine] Allergy unknown Verified 09/01/19 21:14 lithium Allergy Unknown Verified 09/06/19 09:52 metaxalone [From Skelaxin] Allergy Unknown Verified 09/06/19 09:52 morphine Allergy Unknown Verified 09/01/19 21:14 nasal steroids Allergy Unknown Uncoded 09/06/19 09:52 - Social History Does the pt smoke?: No Smoking Status: Never smoker Does the pt drink ETOH?: Yes Does the pt have substance abuse?: No - Immunizations Immunizations are current?: Yes Immunizations: TDAP >10years/unknown - POLST Patient has POLST: No PD ED PE NORMAL - Vitals Vital signs reviewed: Yes - General General: Alert and oriented X 3, No acute distress, Well developed/nourished - HEENT HEENT: Atraumatic, PERRL, EOMI, Moist mucous membranes - Neck Neck: Supple, no meningeal sign - Cardiac Cardiac: RRR, No murmur - Respiratory Respiratory: Clear bilaterally - Abdomen Abdomen: Normal bowel sounds, Soft, Non tender, Non distended - Derm Derm: Warm and dry - Extremities Extremities: No deformity, Other (tenderness over thenar eminence L hand) - Neuro Neuro: Alert and oriented X 3 - Psych Psych: Normal mood, Normal affect Results - Vitals Vitals: Oxygen O2 Source Room air - Rads (name of study) L hand Radiology: Final report received (neg), EMP read indepedently, See rad report PD MEDICAL DECISION MAKING - ED course ED course: Pt was worked up with x-rays of L hand, which were found to be negative. We have discussed home management of the sx, as well as the usual indications for return. Departure - Departure Disposition: 01 Home, Self Care Clinical Impression: Left wrist sprain Qualifiers: Encounter type: initial encounter Qualified Code(s): S63.502A - Unspecified sprain of left wrist, initial encounter Sprain of hand, left Qualifiers: Encounter type: initial encounter Qualified Code(s): S63.92XA - Sprain of unspecified part of left wrist and hand, initial encounter Condition: Stable Instructions: ED Sprain Hand, ED Sprain Wrist Comments: Your x-rays look good. There is no evidence of broken bones anywhere in your hand wrist or forearm. Most likely, you sprained and bruised her wrist and hand when you landed. You may use the Velcro wrist splint, as needed. You may take ibuprofen and Tylenol to help with the discomfort, as well as use ice to help with the swelling and pain. You may follow-up with your primary care physician in the next couple of weeks if you are not feeling better. Forms: Activity restrictions Discharge Date/Time: 09/02/19 00:50
[2019-09-02 00:47] VITALS: BP 130/101
== END 2019-09-02 00:50 | disposition home or self-care (01) ==
LOC: ED 21:08
DX: S63.502A Unspecified sprain of left wrist, initial encounter (principal); S63.92XA Sprain of unspecified part of left wrist and hand, initial encounter; W01.0XXA Fall on same level from slipping, tripping and stumbling without subsequent striking against object, initial encounter; Y99.0 Civilian activity done for income or pay; E11.9 Type 2 diabetes mellitus without complications; Z79.84 Long term (current) use of oral hypoglycemic drugs
CPT/HCPCS: 99282; 99283

== ENCOUNTER 2019-09-12 11:50 | Outpatient (CLI) | payer OTHER, MEDICAID | END 2019-09-12 23:59 | disposition home or self-care (01) | LOC: COV 11:50 | PROVIDERS: ATTEND Family Medicine | DX: Z20.828 Contact with and (suspected) exposure to other viral communicable diseases (principal) ==

== ENCOUNTER 2019-11-23 18:26 | Outpatient (CLI) | payer OTHER, MEDICAID | END 2019-11-23 18:27 | disposition EMS.NT | LOC: EMS 18:26 | PROVIDERS: ATTEND Surgery | DX: R51 Headache (principal) ==

== ENCOUNTER 2019-12-12 14:40 | Outpatient (CLI) | payer OTHER, MEDICAID ==
[2019-12-12 19:47] LABS: H. PYLORIS ANTIGEN STL NEGATIVE (Negative)
== END 2019-12-12 23:59 | disposition home or self-care (01) ==
LOC: LAB.WCP 14:40
PROVIDERS: ATTEND Physician Assistant Medical
DX: R19.7 Diarrhea, unspecified (principal)
CPT/HCPCS: 81599; 87045; 87046; 87177; 87209; 87338; 87493

== ENCOUNTER 2020-08-16 08:00 | Outpatient (CLI) | payer OTHER, MEDICAID ==
[2020-08-16 11:52] LABS: BASOPHILS # (AUTO) 0.1 10^3/uL (0.0-0.1); BASOPHILS % (AUTO) 1.1 %; EOSINOPHILS # (AUTO) 0.2 10^3/uL (0.0-0.7); EOSINOPHILS % (AUTO) 2.6 %; HCT - HEMATOCRIT 45.7 % (37.0-47.0); HGB - HEMOGLOBIN 14.8 g/dL (12.0-16.0); LYMPHOCYTES # (AUTO) 2.2 10^3/uL (1.5-3.5); LYMPHOCYTES % (AUTO) 34.6 %; MEAN CORPUSCULAR HEMOGLOBIN 32.8 pg (27.0-31.0); MEAN CORPUSCULAR HGB CONC 32.4 g/dL (32.0-36.0); MEAN CORPUSCULAR VOLUME 101.3 fL (81.0-99.0); MEAN PLATELET VOLUME 10.3 fL (7.9-10.8); MONOCYTES # (AUTO) 0.3 10^3/uL (0.0-1.0); MONOCYTES % (AUTO) 5.5 %; NEUTROPHILS # (AUTO) 3.5 10^3/uL (1.5-6.6); PLT - PLATELET COUNT 308 10^3/uL (130-450); RED BLOOD COUNT 4.51 10^6/uL (4.20-5.40); WHITE BLOOD COUNT 6.2 x10^3/uL (4.8-10.8)
[2020-08-16 12:30] LABS: ESTIMATED AVERAGE GLUCOSE 137 mg/dL (70-100); HEMOGLOBIN A1c% 6.4 % (4.27-6.07)
[2020-08-16 12:38] LABS: THYROID STIMULATING HORMONE 1.16 uIU/mL (0.34-5.60)
[2020-08-16 12:44] LABS: ALBUMIN 4.2 g/dL (3.2-5.5); ALBUMIN/GLOBULIN RATIO 1.4 (1.0-2.2); ALKALINE PHOSPHATASE 49 IU/L (42-121); ALT ALANINE AMINOTRANSFERASE 16 IU/L (10-60); AST ASPARTATE AMINOTRANSFERASE 16 IU/L (10-42); BILIRUBIN,TOTAL 0.5 mg/dL (0.2-1.0); BUN - BLOOD UREA NITROGEN 17 mg/dL (6-20); CALCIUM 9.3 mg/dL (8.5-10.3); CARBON DIOXIDE - CO2 18 mmol/L (21-32); CHLORIDE 111 mmol/L (101-111); CHOL/HDL RATIO 6.9 (<4.4); CHOLESTEROL 318 mg/dL; CREATININE 0.9 mg/dL (0.4-1.0); GFR - MDRD 69 (>89); GLUCOSE 127 mg/dL (70-100); HDL CHOLESTEROL 46 mg/dL; LDL CHOLESTEROL,CALCULATED 239 mg/dL; LDL/HDL RATIO 5.2 (<4.4); POTASSIUM 3.9 mmol/L (3.5-5.0); SODIUM 138 mmol/L (135-145); TOTAL PROTEIN 7.1 g/dL (6.7-8.2); TRIGLYCERIDES 164 mg/dL; VLDL CHOLESTEROL 33 mg/dL
[2020-08-16 12:48] LABS: CREATININE,URINE 125.6 mg/dL
[2020-08-16 12:49] LABS: MICROALBUMIN,URINE < 0.2 mg/dL (0-300.0)
== END 2020-08-16 23:59 | disposition home or self-care (01) ==
LOC: LAB.WCP 08:00
PROVIDERS: ATTEND Physician Assistant Medical
DX: E11.9 Type 2 diabetes mellitus without complications (principal); K21.9 Gastro-esophageal reflux disease without esophagitis; E78.5 Hyperlipidemia, unspecified
CPT/HCPCS: 36415; 80053; 80061; 82043; 82570; 83036; 83721; 84443; 85025

== ENCOUNTER 2021-04-08 12:34 | Outpatient (CLI) | payer MEDICAID, BC ==
[2021-04-08 18:03] LABS: BASOPHILS # (AUTO) 0.1 10^3/uL (0.0-0.1); BASOPHILS % (AUTO) 0.7 %; EOSINOPHILS # (AUTO) 0.2 10^3/uL (0.0-0.7); EOSINOPHILS % (AUTO) 2.1 %; HCT - HEMATOCRIT 42.8 % (37.0-47.0); HGB - HEMOGLOBIN 14.7 g/dL (12.0-16.0); LYMPHOCYTES # (AUTO) 2.4 10^3/uL (1.5-3.5); LYMPHOCYTES % (AUTO) 32.9 %; MEAN CORPUSCULAR HEMOGLOBIN 33.3 pg (27.0-31.0); MEAN CORPUSCULAR HGB CONC 34.3 g/dL (32.0-36.0); MEAN CORPUSCULAR VOLUME 96.8 fL (81.0-99.0); MEAN PLATELET VOLUME 10.2 fL (7.9-10.8); MONOCYTES # (AUTO) 0.3 10^3/uL (0.0-1.0); MONOCYTES % (AUTO) 4.5 %; NEUTROPHILS # (AUTO) 4.3 10^3/uL (1.5-6.6); NEUTROPHILS % (AUTO) 59.5 %; PLT - PLATELET COUNT 339 10^3/uL (130-450); RED BLOOD COUNT 4.42 10^6/uL (4.20-5.40); RED CELL DISTRIBUTION WIDTH 11.5 % (12.0-15.0); WHITE BLOOD COUNT 7.2 x10^3/uL (4.8-10.8)
[2021-04-08 18:19] LABS: CREATININE,URINE 125.3 mg/dL; MICROALBUM/CREATININE RATIO,UR 3.2 ug/mg (<30.0); MICROALBUMIN,URINE 0.4 mg/dL (0-300.0)
[2021-04-08 18:27] LABS: ALBUMIN 4.2 g/dL (3.2-5.5); ALBUMIN/GLOBULIN RATIO 1.4 (1.0-2.2); ALKALINE PHOSPHATASE 59 IU/L (42-121); ALT ALANINE AMINOTRANSFERASE 16 IU/L (10-60); AST ASPARTATE AMINOTRANSFERASE 17 IU/L (10-42); BILIRUBIN,TOTAL 0.6 mg/dL (0.2-1.0); BUN - BLOOD UREA NITROGEN 11 mg/dL (6-20); CALCIUM 9.1 mg/dL (8.5-10.3); CARBON DIOXIDE - CO2 21 mmol/L (21-32); CHLORIDE 104 mmol/L (101-111); CHOL/HDL RATIO 5.5 (<4.4); CHOLESTEROL 286 mg/dL; CREATININE 0.7 mg/dL (0.4-1.0); GFR - MDRD 92 (>89); GLUCOSE 157 mg/dL (70-100); HDL CHOLESTEROL 52 mg/dL; LDL CHOLESTEROL,CALCULATED 187 mg/dL; LDL/HDL RATIO 3.6 (<4.4); POTASSIUM 3.9 mmol/L (3.5-5.0); SODIUM 136 mmol/L (135-145); TOTAL PROTEIN 7.2 g/dL (6.7-8.2); TRIGLYCERIDES 234 mg/dL; VLDL CHOLESTEROL 47 mg/dL
[2021-04-08 18:33] LABS: THYROID STIMULATING HORMONE 0.9 uIU/mL (0.34-5.60)
[2021-04-09 13:19] LABS: ESTIMATED AVERAGE GLUCOSE 186 mg/dL (70-100); HEMOGLOBIN A1c% 8.1 % (4.27-6.07)
== END 2021-04-08 12:35 | disposition home or self-care (01) ==
LOC: LAB.N 12:34
PROVIDERS: ATTEND Physician Assistant Medical
DX: E11.9 Type 2 diabetes mellitus without complications (principal); K21.9 Gastro-esophageal reflux disease without esophagitis
CPT/HCPCS: 36415; 80053; 80061; 82043; 82570; 83036; 83721; 84443; 85025

== ENCOUNTER 2021-04-29 08:00 | Outpatient (CLI) | payer OTHER, BC, MEDICAID ==
--- NOTE | 2021-04-29 18:44 | XRAY Report ---
PROCEDURE: Hand 3 View RT INDICATIONS: SPRAIN OF R WRIST TECHNIQUE: 3 views of the hand(s) acquired. COMPARISON: None FINDINGS: Bones: No fractures or dislocations. No suspicious bony lesions. Soft tissues: No suspicious soft tissue calcifications. IMPRESSION: Right hand without acute fracture or dislocation. Reviewed by: Vinny Yin MD on 04/29/2021 5:43 PM [place] Approved by: Vinny Yin MD on 04/29/2021 5:43 PM [place] Station ID: [id number]
== END 2021-04-29 23:59 | disposition home or self-care (01) ==
LOC: DI.N 08:00
PROVIDERS: ATTEND Nurse Practitioner
DX: S63.610A Unspecified sprain of right index finger, initial encounter (principal)

== ENCOUNTER 2021-06-20 10:24 | Outpatient (CLI) | payer BC, MEDICAID | END 2021-06-20 10:25 | disposition short-term general hospital (02) | LOC: EMS 10:24 | DX: E11.65 Type 2 diabetes mellitus with hyperglycemia (principal); R11.0 Nausea; R51.9 Headache, unspecified; R42 Dizziness and giddiness; R10.817 Generalized abdominal tenderness | CPT/HCPCS: A0425; A0427 ==

== ENCOUNTER 2021-07-08 08:00 | Outpatient (CLI) | payer BC, MEDICAID | END 2021-07-08 23:59 | disposition home or self-care (01) | LOC: LAB.N 08:00 | PROVIDERS: ATTEND Registered Nurse | DX: Z20.822 Contact with and (suspected) exposure to COVID-19 (principal) ==

== ENCOUNTER 2021-07-16 08:00 | Outpatient (CLI) | payer BC, MEDICAID | END 2021-07-16 23:59 | disposition home or self-care (01) | LOC: LAB.N 08:00 | PROVIDERS: ATTEND Physician Assistant | DX: U07.1 COVID-19 (principal) ==